=== PATIENT | female | born 1935 | race Caucasian/White ===

== ENCOUNTER 2017-04-13 09:44 | Inpatient (IN) | payer MEDICARE ==
[2017-04-13] MEDS ORDERED: Sodium Chloride 0.9% 1000 ML 1,000 ML IV SCH ×2 (10:00→20:15)
--- NOTE | 2017-04-13 10:13 | ERPHSYRPT ---
- History of Present Illness Time Seen by Provider: 04/13/17 09:46 Source: patient, family (daughter), EMS, halfway records Physician History: CC: headache Hx: 81 y/o patient of Dr Miranda from [facility]. She takes xarelto. This AM she has had unusual headache. Was unable to walk normally and was uncoordinated. She had intermittent episodes of diaphoresis. [place] noted low BP. No chest or abd pain. No N/V. She was sent to ER for evaluation. She is DNR at [facility]. She denies fall or head injury. Timing/Duration: today (fine yesterday) Severity: moderate Allergies/Adverse Reactions: fluoxetine HCl [From Prozac] Allergy (Verified 04/13/17 10:51) Sulfa (Sulfonamide Antibiotics) Allergy (Verified 04/13/17 10:51) Home Medications: Esomeprazole Magnesium [Nexium] 40 mg PO HS 11/11/13 [History] Magnesium 200 mg PO HS 11/11/13 [History] Primidone 50 MG [Mysoline 50Mg] 1 tab PO BID 11/11/13 [History] Rivaroxaban [Xarelto] 10 mg PO DAILY 11/11/13 [History] Bupropion HCl [Wellbutrin Sr] 150 mg PO DAILY 12/25/14 [History] Donepezil HCl 10 mg [Aricept 10 MG] 10 mg PO HS 01/29/15 [History] Furosemide [Lasix] 20 mg PO DAILY 01/29/15 [History] Lisinopril 10 mg [Zestril 10 MG] 20 mg PO DAILY 01/29/15 [History] Tramadol HCl 50 mg [Ultram 50 mg] 50 mg PO BID 01/29/15 [History] Alprazolam 1 mg [Xanax 1 mg] 1 mg PO QID 04/13/17 [History] Hx Tetanus, Diphtheria Vaccination/Date Given: No Hx Influenza Vaccination/Date Given: Yes Hx Pneumococcal Vaccination/Date Given: No - Review of Systems Constitutional: Malaise, No Fever, No Chills Eyes: No Vision Changes Ears, Nose, & Throat: No Symptoms Respiratory: No Cough, No Dyspnea Cardiac: No Chest Pain, No Syncope Abdominal/Gastrointestinal: No Abdominal Pain, No Nausea, No Vomiting Genitourinary Symptoms: No Dysuria Musculoskeletal: No Back Pain, No Neck Pain, No Fall, No Injury Skin: No Rash Neurological: Gait Changes, Headache, No Focal Weakness, No Seizure All Other Systems: Reviewed and Negative - Past Medical History Pertinent Past Medical History: Yes Neurological History: Dementia ENT History: Cataracts Cardiac History: Hypertension Respiratory History: Asthma, Pulmonary Embolism Endocrine Medical History: Diabetes Type II Musculoskeletal History: Arthritis, Fractures GI Medical History: GERD History: Other Psycho-Social History: Anxiety, Depression Female Reproductive Disorders: No Pertinent History - Past Surgical History Past Surgical History: Yes Neuro Surgical History: No Pertinent History Cardiac: No Pertinent History Respiratory: No Pertinent History Gastrointestinal: No Pertinent History Genitourinary: No Pertinent History Musculoskeletal: Orthopedic Surgery Female Surgical History: Hysterectomy Other Surgical History: left PATELLA - Social History Smoking Status: Former smoker Exposure to second hand smoke: No Drug Use: none Patient Lives Alone: No ([facility]) - Female History Hx Now: No - Nursing Vital Signs Nursing Vital Signs: Initial Vital Signs Temperature 99.8 F Temperature Source Rectal Pulse Rate 86 Respiratory Rate 20 Blood Pressure [Right Arm] 94/56 Pain Intensity 0 - Physical Exam General Appearance: alert Eye Exam: PERRL/EOMI Ears, Nose, Throat Exam: normal ENT inspection, moist mucous membranes Neck Exam: normal inspection, non-tender, supple Respiratory Exam: normal breath sounds, lungs clear Cardiovascular Exam: regular rate/rhythm Gastrointestinal/Abdomen Exam: soft, No tenderness, No distention, No guarding Extremity Exam: normal inspection, pedal edema (trace) Neurologic Exam: alert, oriented x 3, cooperative, customer program manager II-XII nml as tested, sensation nml, No motor deficits Skin Exam: warm, dry, No rash - Course Nursing assessment & vital signs reviewed: Yes EKG Interpreted by Me: RATE (81), Sinus Rhythm, NORMAL AXIS, 1st degree AV Block , NORMAL QRS, Non-specific ST Changes (anterior and inferior T wave inversions) , Other (no lold tracing available for comparison) - Radiology Exams cxr X-ray Interpretation: Teleradiologist Report (RLL infiltrate) - CT Exams head CT Interpretation: Tele-radiologist Report, No/Intracranial Hemorrhag Ordered Tests: Active Orders 24 hr Category Date Time Status Accucheck STAT Care 04/13/17 09:46 Active Language And Literature Division Chair STAT Care 04/13/17 09:46 Active Cath for Specimen-Straight STAT Care 04/13/17 09:46 Active EKG-ER Only STAT Care 04/13/17 09:46 Active IV Insertion STAT Care 04/13/17 09:46 Active NPO (ED) STAT Care 04/13/17 09:46 Active Oxygen-ED Only NASAL CANNULA 2 lpm Care 04/13/17 09:46 Active Pulse Oximetry (ED) STAT Care 04/13/17 09:46 Active Rectal Temperature STAT Care 04/13/17 09:48 Active CHEST 1 VIEW (PORTABLE) Stat Exams 04/13/17 09:46 Completed HEAD WITHOUT CONTRAST [CT] Stat Exams 04/13/17 09:47 Completed BLOOD CULTURE Stat Lab 04/13/17 11:10 Received CBC W DIFF Stat Lab 04/13/17 10:14 Completed CMP Stat Lab 04/13/17 10:14 Completed CULTURE,URINE Stat Lab 04/13/17 10:40 Received Lactic Acid Stat Lab 04/13/17 10:10 Results Manual Differential NC Stat Lab 04/13/17 10:14 Completed PROTIME WITH INR Stat Lab 04/13/17 10:14 Completed PTT Stat Lab 04/13/17 10:14 Completed TROPONIN Stat Lab 04/13/17 10:14 Completed UA W/ MICROSCOPIC Stat Lab 04/13/17 10:40 Completed VENOUS BLOOD GAS Urgent Lab 04/13/17 10:10 Completed Medication Summary Generic Name Dose Route Start Last Admin Trade Name Freq PRN Reason Stop Dose Admin Sodium Chloride 1,000 mls @ 100 mls/hr 04/13/17 10:00 04/13/17 10:56 Sodium Chloride 0.9% 1000 Ml IV 05/13/17 09:59 100 mls/hr .Q10H JORDON Administration Azithromycin 500 mg in 250 mls @ 250 mls/hr 04/13/17 11:02 Zithromax 500 Mg/ 250 Ml Nacl Premix IV 04/13/17 12:01 STAT STA Discontinued Medications Generic Name Dose Route Start Last Admin Trade Name Freq PRN Reason Stop Dose Admin Ceftriaxone Sodium/Dextrose 1 g in 50 mls @ 100 mls/hr 04/13/17 10:21 11:01 Rocephin 1 Gm-D5w 50 Ml Bag IV 04/13/17 10:50 100 mls/hr STAT STA Administration Ceftriaxone Sodium/Dextrose Confirm 04/13/17 10:47 Rocephin 1 Gm-D5w 50 Ml Bag Administered 04/13/17 10:48 Dose 1 g in 50 mls @ ud IV .STK-MED ONE Lab/Rad Data: Laboratory Result Diagrams 04/13/17 10:14 04/13/17 10:14 Laboratory Results 04/13/17 04/13/17 04/13/17 Range/Units 10:40 10:14 10:14 WBC (4.0-10.5) K/mm3 RBC (4.1-5.4) M/mm3 Hgb (12.0-16.0) gm/dl Hct (35-47) % MCV (78-100) fl MCH (26-32) pg MCHC (32-36) g/dl RDW (11.5-14.0) % Plt Count (150-450) K/mm3 MPV (6-9.5) fl INR 1.07 (0.8-3.0) APTT 28.5 (25.3-37.0) SECONDS VBG pH (7.32-7.42) VBG pCO2 at Pat Temp (42-55) mm/Hg VBG pO2 at Pat Temp (25-40) mm/Hg VBG HCO3 (22-28) meq/L VBG O2 Sat (Lara) (95-100) VBG Base Excess (-2.0-2.0) VBG Hemoglobin VBG Carboxyhemoglobin (0.0-6.9) % T HGB POC Potassium (3.5-5.1) Sodium (136-145) mEq/L Potassium (3.5-5.1) mEq/L Chloride (98-107) mEq/L Carbon Dioxide (21-32) mEq/L Anion Gap (5-15) MEQ/L BUN (9-20) mg/dL Creatinine (0.55-1.30) mg/dl Estimated GFR ML/MIN Glucose (70-110) MG/DL Lactic Acid (0.4-2.0) Calcium (8.5-10.1) mg/dL Total Bilirubin (0.2-1.0) mg/dL AST (15-37) U/L ALT (12-78) U/L Alkaline Phosphatase (46-116) U/L Troponin I < 0.017 (0.000-0.056) ng/ml Serum Total Protein (6.4-8.2) gm/dL Albumin (3.4-5.0) g/dL Ur Collection Type CATH Urine Color YELLOW (YELLOW) Urine Appearance CLEAR (CLEAR) Urine pH 6.0 (5-6) Ur Specific [place] 1.010 (1.005-1.025) Urine Protein NEGATIVE (Negative) Urine Ketones NEGATIVE (NEGATIVE) Urine Blood 5-10 (0-5) Donny/ul Urine Nitrite NEGATIVE (NEGATIVE) Urine Bilirubin NEGATIVE (NEGATIVE) Urine Urobilinogen NORMAL (0-1) mg/dL Ur Leukocyte Esterase TRACE (NEGATIVE) Urine Microscopic RBC 0-2 (0-2) /HPF Urine Microscopic WBC 2-5 (0-5) /HPF Ur Epithelial Cells RARE (FEW) /HPF Urine Bacteria RARE (NEGATIVE) /HPF Hyaline Casts 2-5 (0-2) /LPF Urine Mucus SLIGHT (NEGATIVE) /HPF Urine Glucose 50 (NEGATIVE) mg/dL Specimen Received 1040 04/13/17 04/13/17 04/13/17 04/13/17 Range/Units 10:14 10:14 10:10 WBC 11.1 H (4.0-10.5) K/mm3 RBC 3.82 L (4.1-5.4) M/mm3 Hgb 11.8 L (12.0-16.0) gm/dl Hct 36.6 (35-47) % MCV 95.8 (78-100) fl MCH 30.8 (26-32) pg MCHC 32.2 (32-36) g/dl RDW 15.2 H (11.5-14.0) % Plt Count 223 (150-450) K/mm3 MPV 10.3 H (6-9.5) fl INR (0.8-3.0) APTT (25.3-37.0) SECONDS VBG pH 7.29 L (7.32-7.42) VBG pCO2 at Pat Temp 60 H (42-55) mm/Hg VBG pO2 at Pat Temp 27 (25-40) mm/Hg VBG HCO3 28.9 H (22-28) meq/L VBG O2 Sat (Lara) 43.1 L (95-100) VBG Base Excess 1.1 (-2.0-2.0) VBG Hemoglobin 12.5 VBG Carboxyhemoglobin 1.2 (0.0-6.9) % T HGB POC Potassium 5.3 H (3.5-5.1) Sodium 131 L (136-145) mEq/L Potassium 5.4 H (3.5-5.1) mEq/L Chloride 96 L (98-107) mEq/L Carbon Dioxide 25.0 (21-32) mEq/L Anion Gap 15.7 H (5-15) MEQ/L BUN 32 H (9-20) mg/dL Creatinine 1.59 H (0.55-1.30) mg/dl Estimated GFR 33 ML/MIN Glucose 164 H (70-110) MG/DL Lactic Acid (0.4-2.0) Calcium 8.8 (8.5-10.1) mg/dL Total Bilirubin 0.30 (0.2-1.0) mg/dL AST 17 (15-37) U/L ALT 11 L (12-78) U/L Alkaline Phosphatase 90 (46-116) U/L Troponin I (0.000-0.056) ng/ml Serum Total Protein 6.8 (6.4-8.2) gm/dL Albumin 3.3 L (3.4-5.0) g/dL Ur Collection Type Urine Color (YELLOW) Urine Appearance (CLEAR) Urine pH (5-6) Ur Specific [place] (1.005-1.025) Urine Protein (Negative) Urine Ketones (NEGATIVE) Urine Blood (0-5) Donny/ul Urine Nitrite (NEGATIVE) Urine Bilirubin (NEGATIVE) Urine Urobilinogen (0-1) mg/dL Ur Leukocyte Esterase (NEGATIVE) Urine Microscopic RBC (0-2) /HPF Urine Microscopic WBC (0-5) /HPF Ur Epithelial Cells (FEW) /HPF Urine Bacteria (NEGATIVE) /HPF Hyaline Casts (0-2) /LPF Urine Mucus (NEGATIVE) /HPF Urine Glucose (NEGATIVE) mg/dL Specimen Received 04/13/17 Range/Units 10:10 WBC (4.0-10.5) K/mm3 RBC (4.1-5.4) M/mm3 Hgb (12.0-16.0) gm/dl Hct (35-47) % MCV (78-100) fl MCH (26-32) pg MCHC (32-36) g/dl RDW (11.5-14.0) % Plt Count (150-450) K/mm3 MPV (6-9.5) fl INR (0.8-3.0) APTT (25.3-37.0) SECONDS VBG pH (7.32-7.42) VBG pCO2 at Pat Temp (42-55) mm/Hg VBG pO2 at Pat Temp (25-40) mm/Hg VBG HCO3 (22-28) meq/L VBG O2 Sat (Lara) (95-100) VBG Base Excess (-2.0-2.0) VBG Hemoglobin VBG Carboxyhemoglobin (0.0-6.9) % T HGB POC Potassium (3.5-5.1) Sodium (136-145) mEq/L Potassium (3.5-5.1) mEq/L Chloride (98-107) mEq/L Carbon Dioxide (21-32) mEq/L Anion Gap (5-15) MEQ/L BUN (9-20) mg/dL Creatinine (0.55-1.30) mg/dl Estimated GFR ML/MIN Glucose (70-110) MG/DL Lactic Acid 3.5 H (0.4-2.0) Calcium (8.5-10.1) mg/dL Total Bilirubin (0.2-1.0) mg/dL AST (15-37) U/L ALT (12-78) U/L Alkaline Phosphatase (46-116) U/L Troponin I (0.000-0.056) ng/ml Serum Total Protein (6.4-8.2) gm/dL Albumin (3.4-5.0) g/dL Ur Collection Type Urine Color (YELLOW) Urine Appearance (CLEAR) Urine pH (5-6) Ur Specific [place] (1.005-1.025) Urine Protein (Negative) Urine Ketones (NEGATIVE) Urine Blood (0-5) Donny/ul Urine Nitrite (NEGATIVE) Urine Bilirubin (NEGATIVE) Urine Urobilinogen (0-1) mg/dL Ur Leukocyte Esterase (NEGATIVE) Urine Microscopic RBC (0-2) /HPF Urine Microscopic WBC (0-5) /HPF Ur Epithelial Cells (FEW) /HPF Urine Bacteria (NEGATIVE) /HPF Hyaline Casts (0-2) /LPF Urine Mucus (NEGATIVE) /HPF Urine Glucose (NEGATIVE) mg/dL Specimen Received - Progress Progress Note: 04/13/17 11:47 She appears stable. BP borderline low. IVF given. Cultures sent. Abtx started to cover pneumonia. pH lower than expected and lactic up some. Called Dr Sarkar for Dr Miranda. Will admit to Tele. Daughter here and at bedside. [facility] paperwork completed. Discussed with Dr.: Mello Will see patient in: hospital (full admit) Counseled pt/family regarding: lab results, diagnosis, need for follow-up, rad results - Departure Time of Disposition: 11:48 Departure Disposition: In-patient Admission (Tele) Clinical Impression: RLL pneumonia, Sepsis Condition: Fair Critical Care Time: No Referrals: DELTA MIRANDA MD [Primary Care Provider] -
[2017-04-13 10:17] LABS: Lactic Acid 3.5 (0.4-2.0)
[2017-04-13 10:20] LABS: VBG BASE EXCESS 1.1 (-2.0-2.0); VBG CARBOXYHEMOGLOBIN 1.2 % T HGB (0.0-6.9); VBG HCO3- 28.9 meq/L (22-28); VBG HEMOGLOBIN 12.5; VBG O2 SATURATION 43.1 (95-100); VBG POTASSIUM 5.3 (3.5-5.1); VBG pH 7.29 (7.32-7.42)
[2017-04-13] MEDS ORDERED: ROCEPHIN 1 Gm-D5w 50 ml Bag** 1 G/50 ML IVPB IV STA (10:21)
[2017-04-13 10:24] LABS: Mean Cell Volume 95.8 fl (78-100); Mean Platelet Volume 10.3 fl (6-9.5); Platelet Count 223 K/mm3 (150-450); Red Blood Count 3.82 M/mm3 (4.1-5.4); Red Cell Distribution Width 15.2 % (11.5-14.0); White Blood Count 11.1 K/mm3 (4.0-10.5)
[2017-04-13 10:25] LABS: Mean Corpuscular Hemoglobin 30.8 pg (26-32)
[2017-04-13 10:40] LABS: INR 1.07 (0.8-3.0); PROTIME 12.1 SECONDS (9.95-12.35)
[2017-04-13 10:43] LABS: PTT 28.5 SECONDS (25.3-37.0)
[2017-04-13 10:46] LABS: ALBUMIN 3.3 g/dL (3.4-5.0); ANION GAP 15.7 MEQ/L (5-15); BILIRUBIN,TOTAL 0.3 mg/dL (0.2-1.0); Potassium 5.4 mEq/L (3.5-5.1); Total Protein 6.8 gm/dL (6.4-8.2)
[2017-04-13 10:46] LABS: Collection Type CATH
[2017-04-13 10:47] LABS: Bilirubin NEGATIVE (NEGATIVE); Glucose 50 mg/dL (NEGATIVE); Leukocyte Esterase TRACE (NEGATIVE)
[2017-04-13] MEDS ORDERED: ROCEPHIN 1 Gm-D5w 50 ml Bag** 1 G/50 ML IVPB IV ONE (10:47)
[2017-04-13 10:48] LABS: COMPLETE URINE MICROSCOPIC? YES
--- NOTE | 2017-04-13 11:01 | XRAY ---
Indication: Weakness. Comparison: July 07, 2016P Portable chest again hyperinflated with again right base infiltrate/atelectasis larger than before with now small effusion. Remaining lungs clear. Heart within normal limits for AP portable technique.
--- NOTE | 2017-04-13 11:01 | XRAY ---
Indication: Weakness. Gait imbalance. Multiple contiguous axial images obtained through the head without contrast. Comparison: January 29, 2015. Again no acute intracranial hemorrhage, abnormal extraaxial fluid collection, or mass effect. Fourth ventricle is midline. Stable age appropriate global atrophy, minimal periventricular degenerative microischemia, and remote lacunar infarct of the left caudate head. Osseous structures intact. Visualized paranasal sinuses are clear. There is now partial opacification of the inferior left mastoid air cells. Impression: Stable nonacute senile brain with again remote left caudate lacunar infarct. Partial opacification of the left mastoid air cells presumed inflammatory. CT DI 69.11
[2017-04-13] MEDS ORDERED: Zithromax 500 MG/ 250 ML NaCl Premix 500 MG/250 ML IVPB IV STA (11:02)
[2017-04-13 11:10] LABS: Bacteria RARE /HPF (NEGATIVE); Epithelial Cells RARE /HPF (FEW); Mucus SLIGHT /HPF (NEGATIVE)
[2017-04-13 11:11] LABS: ADD URINE CULTURE? YES (NO)
[2017-04-13] MEDS ORDERED: Zithromax 500 MG/ 250 ML NaCl Premix 500 MG/250 ML IVPB IV ONE (11:45)
[2017-04-13 11:55] LABS: BAND 6 % (0.0-2.0); Total Cells Counted 100
[2017-04-13 11:56] LABS: Platelet Estimate NORMAL (NORMAL); Toxic Granulation 1+
[2017-04-13] MEDS ORDERED: TYLENOL 325 MG PO PRN (12:32)
[2017-04-13] MEDS ORDERED: Tessalon Perles 100 MG PO SCH (16:00)
[2017-04-13] MEDS ORDERED: GLYCERIN OP SCH (16:00)
[2017-04-13] MEDS ORDERED: CARBOXYMETHYLCELLULOS OP SCH (16:00)
[2017-04-13] MEDS ORDERED: XARELTO 10 MG TABLET PO SCH (16:15)
[2017-04-13] MEDS ORDERED: MEDICATION INTERVENTION MC PRN (16:28)
[2017-04-13] MEDS: XANAX 1 MG PO SCH ×2 (17:00→22:30)
[2017-04-13] MEDS: Neurontin 100 MG PO SCH ×2 (17:00→22:29)
[2017-04-13] MEDS: Artificial Tears 15 ML OP SCH ×4 (17:01→23:43)
[2017-04-13] MEDS: Advair Hfa 115/21 Common canister IH SCH (19:17)
[2017-04-13] MEDS ORDERED: Requip 0.5 MG ONE (19:41)
[2017-04-13] MEDS ORDERED: MORPHINE SULFATE 2 MG INJ IV PRN (20:01)
[2017-04-13] MEDS: Requip 0.5 MG PO SCH (20:01)
[2017-04-13] MEDS ORDERED: PETROLATUM WHITE OP SCH (22:00)
[2017-04-13] MEDS ORDERED: Levofloxacin 500MG/100ML D5W 500 MG/100 ML BAG IV SCH (22:00)
[2017-04-13] MEDS ORDERED: MAGNESIUM 200 MG PO SCH (22:00)
[2017-04-13] MEDS ORDERED: DEXTRAN OP SCH (22:00)
[2017-04-13] MEDS ORDERED: NON-FORMULARY ITEM (Esomeprazole Magnesium [Nexium] 40 MG) PO SCH (22:00)
[2017-04-13] MEDS ORDERED: MINERAL OIL OP SCH (22:00)
[2017-04-13] MEDS ORDERED: HYPROMELLOSE OP SCH (22:00)
[2017-04-13] MEDS: Lubrifresh P.M. 3.5 gm Ointment OP SCH (22:27)
[2017-04-13] MEDS: MAG-OX 400 PO SCH (22:28)
[2017-04-13] MEDS: MYSOLINE 50MG PO SCH (22:29)
[2017-04-13] MEDS: Protonix 40MG Tablet PO SCH (22:29)
[2017-04-13] MEDS: ULTRAM 50 MG PO SCH (22:32)
[2017-04-13] MEDS: SENOKOT 8.6 MG PO PRN (22:36)
[2017-04-13] MEDS: Sodium Chloride 0.9% 1000 ML 1,000 ML IV SCH (22:37)
[2017-04-14] MEDS: Tessalon Perles 100 MG PO PRN ×2 (02:17→22:40)
[2017-04-14] MEDS: Artificial Tears 15 ML OP SCH ×11 (04:34→22:01)
[2017-04-14 05:09] LABS: Lactic Acid 0.5 (0.4-2.0); VBG BASE EXCESS 1.2 (-2.0-2.0); VBG CARBOXYHEMOGLOBIN 2.7 % T HGB (0.0-6.9); VBG HEMOGLOBIN 9.5; VBG POTASSIUM 4.5 (3.5-5.1); VBG pH 7.41 (7.32-7.42)
[2017-04-14 05:21] LABS: BASOPHIL % 0.2 % (0.0-0.4); Eosinophil % 1.1 % (0.00-5.0); Granulocytes % 81.1 % (36.0-66.0); Lymphocytes % 9.9 % (24.0-44.0); Mean Platelet Volume 10.4 fl (6-9.5); Monocytes % 7.7 % (0.0-12.0); Platelet Count 156 K/mm3 (150-450); Red Blood Count 2.97 M/mm3 (4.1-5.4); Red Cell Distribution Width 15.1 % (11.5-14.0); White Blood Count 6.1 K/mm3 (4.0-10.5)
[2017-04-14 05:33] LABS: Mean Corpuscular Hemoglobin 30.9 pg (26-32)
[2017-04-14] MEDS: Advair Hfa 115/21 Common canister IH SCH ×2 (06:40→19:09)
[2017-04-14] MEDS: DUONEB 0.5-3 MG/3 ml Neb IH PRN (06:47)
[2017-04-14] MEDS: Sodium Chloride 0.9% 1000 ML 1,000 ML IV SCH ×2 (08:16→22:12)
--- NOTE | 2017-04-14 09:12 | PCM.HP ---
History of Present Illness - Chief Complaint Chief Complaint: rll pneumonia History of Present Illness: is a 81 year old female who [facility], she was weak and confused. She has chronic respiratory failure and is on oxygen, per daughter she was found without her oxygen on yesterday morning. She has had frequent nosebleeds, complained of headache yesterday. she takes xarelto, chest xray shows pneumonia. - Review of Systems Constitutional: No Fever, No Chills Respiratory: Cough, Short Of Breath Cardiac: No Chest Pain, No Edema, No Syncope Abdominal/Gastrointestinal: No Abdominal Pain, No Nausea, No Vomiting, No Diarrhea Skin: No Rash All Other Systems: Reviewed and Negative Medications & Allergies Home Medications: Home Medication List Esomeprazole Magnesium [Nexium] 40 mg PO HS 11/11/13 [History Confirmed 04/13/17 ] Magnesium 200 mg PO HS 11/11/13 [History Confirmed 04/13/17] Primidone 50 MG [Mysoline 50Mg] 1 tab PO BID 11/11/13 [History Confirmed ] Rivaroxaban [Xarelto] 10 mg PO DAILY 11/11/13 [History Confirmed 04/13/17] Bupropion HCl [Wellbutrin Sr] 150 mg PO DAILY 12/25/14 [History Confirmed ] Donepezil HCl 10 mg [Aricept 10 MG] 10 mg PO HS 01/29/15 [History Confirmed 04/13/17] Lisinopril 10 mg [Zestril 10 MG] 20 mg PO DAILY 01/29/15 [History Confirmed 04/13/17] Tramadol HCl 50 mg [Ultram 50 mg] 50 mg PO BID 01/29/15 [History Confirmed 04/13/17] Alprazolam 1 mg [Xanax 1 mg] 1 mg PO QID 04/13/17 [History Confirmed 04/13] Benzonatate [Tessalon Perle] 200 mg PO TID 04/13/17 [History Confirmed 04/13/17] Carboxymethylcellulos/Glycerin [Refresh Optive Eye Drops] 2 drp OP Q2H 04/13/17 [History Confirmed 04/13/17] Dextran 70/Hypromellose [Artificial Tears Eye Drops] 1 drp OP HS 04/13/17 [ History Confirmed 04/13/17] Fluticasone Propionate [Flonase NASAL] 16 gm NS DAILY 04/13/17 [History Confirmed 04/13/17] Fluticasone/Vilanterol [Breo Ellipta 100-25 Mcg INH] 1 each IH DAILY 04/13/17 [ History Confirmed 04/13/17] Gabapentin [Neurontin] 100 mg PO TID 04/13/17 [History Confirmed 04/13/17] Loratadine 10 mg [Claritin 10 mg] 1 tab PO DAILY 04/13/17 [History Confirmed 04/13/17] Mineral Oil/Petrolatum,White [Refresh P.m. Ointment] 3.5 gm OP HS 04/13/17 [ History Confirmed 04/13/17] Olopatadine HCl [Pataday] 2.5 ml OP DAILY 04/13/17 [History Confirmed 04/13/17] Omeprazole 20 MG [Prilosec 20 mg] 20 mg PO BID 04/13/17 [History Confirmed 04/13] Ropinirole HCl 0.5 mg [Requip 0.5 MG] 1 mg PO HS 04/13/17 [History Confirmed 04/13/17] Sennosides [Senna Laxative] 8.6 mg PO BID 04/13/17 [History Confirmed 04/13/17] Allergies/Adverse Reactions: Allergies Allergy/AdvReac Type Severity Reaction Status Date / Time fluoxetine HCl [From Prozac] Allergy Verified 04/13/17 10:51 Sulfa (Sulfonamide Allergy Verified 04/13/17 10:51 Antibiotics) - Past Medical History Past Medical History: Yes Neurological History: Dementia ENT History: Cataracts Cardiac History: Hypertension Respiratory History: Asthma, Pulmonary Embolism Endocrine Medical History: Diabetes Type II Musculoskelatal History: Arthritis, Fractures GI Medical History: GERD History: Other Pyscho-Social History: Anxiety, Depression Reproductive Disorders: No Pertinent History - Female History Are you now?: No - Past Surgical History Past Surgical History: Yes Neuro Surgical History: No Pertinent History Cardiac History: No Pertinent History Respiratory Surgery: No Pertinent History GI Surgical History: No Pertinent History Genitourinary Surgical Hx: No Pertinent History Musculskeletal Surgical Hx: Orthopedic Surgery Female Surgical History: Hysterectomy Other Surgical History: left PATELLA - Social History Smoking Status: Former smoker Exposure to second hand smoke: No Alcohol: None Drug Use: none - Physical Exam Vital Signs: Vital Signs - 24 hr Temp Pulse Resp BP Pulse Ox 04/14/17 07:04 97.6 F 79 18 133/59 93 L 04/14/17 06:43 77 18 93 L 04/14/17 04:05 98.5 F 77 20 125/56 96 04/13/17 23:34 98.4 F 85 20 132/59 94 L 04/13/17 20:00 98.7 F 88 22 133/56 94 L 04/13/17 19:27 88 22 94 L 04/13/17 18:00 98.1 F 87 18 123/53 93 L 04/13/17 16:00 98.1 F 76 18 108/50 93 L 04/13/17 14:17 87 18 95 04/13/17 12:33 98.9 F 81 18 116/51 95 04/13/17 12:11 78 18 105/43 92 L 04/13/17 10:38 20 94/56 98 04/13/17 10:30 99.8 F 98 04/13/17 09:45 99.8 F 86 18 93/55 98 Oxygen-Last 24 hours O2 Percentage 3 Liters = 32% O2 Percentage 3 Liters = 32% O2 Percentage 3 Liters = 32% O2 Percentage 3 Liters = 32% O2 Percentage 2 Liters = 28% O2 Percentage 2 Liters = 28% O2 Percentage 3 Liters = 32% O2 Percentage 3 Liters = 32% O2 Percentage 3 Liters = 32% O2 Percentage 3 Liters = 32% O2 Percentage 3 Liters = 32% General Appearance: no apparent distress, alert Eye Exam: PERRL/EOMI, eyes nml inspection Respiratory Exam: crackles/rales (right lower lung) Cardiovascular Exam: regular rate/rhythm, normal heart sounds, normal peripheral pulses Gastrointestinal/Abdomen Exam: soft, normal bowel sounds, No tenderness, No mass Extremity Exam: normal inspection, normal range of motion, pelvis stable Results - Labs Lab/Micro Results: Accuchecks Date 04/13/17 Accucheck Value: 99 Accucheck Value: 107 Accucheck Value: 108 Lab Results-Last 24 Hours 04/13/17 04/13/17 04/14/17 Range/Units 13:00 13:10 05:00 WBC 6.1 (4.0-10.5) K/mm3 RBC 2.97 L (4.1-5.4) M/mm3 Hgb 9.2 L (12.0-16.0) gm/dl Hct 28.8 L (35-47) % MCV 97.0 (78-100) fl MCH 30.9 (26-32) pg MCHC 31.9 L (32-36) g/dl RDW 15.1 H (11.5-14.0) % Plt Count 156 (150-450) K/mm3 MPV 10.4 H (6-9.5) fl Gran % 81.1 H (36.0-66.0) % Lymphocytes % 9.9 L (24.0-44.0) % Monocytes % 7.7 (0.0-12.0) % Eosinophils % 1.1 (0.00-5.0) % Basophils % 0.2 (0.0-0.4) % Basophils # 0.01 (0-0.4) VBG pH (7.32-7.42) VBG pCO2 at Pat Temp (42-55) mm/Hg VBG pO2 at Pat Temp (25-40) mm/Hg VBG HCO3 (22-28) meq/L VBG O2 Sat (Lara) (95-100) VBG Base Excess (-2.0-2.0) VBG Hemoglobin VBG Carboxyhemoglobin (0.0-6.9) % T HGB POC Potassium (3.5-5.1) Hemoglobin A1c 5.4 (4.5-6.2) Lactic Acid 2.1 H (0.4-2.0) 04/14/17 Range/Units 05:03 WBC (4.0-10.5) K/mm3 RBC (4.1-5.4) M/mm3 Hgb (12.0-16.0) gm/dl Hct (35-47) % MCV (78-100) fl MCH (26-32) pg MCHC (32-36) g/dl RDW (11.5-14.0) % Plt Count (150-450) K/mm3 MPV (6-9.5) fl Gran % (36.0-66.0) % Lymphocytes % (24.0-44.0) % Monocytes % (0.0-12.0) % Eosinophils % (0.00-5.0) % Basophils % (0.0-0.4) % Basophils # (0-0.4) VBG pH 7.41 (7.32-7.42) VBG pCO2 at Pat Temp 41 L (42-55) mm/Hg VBG pO2 at Pat Temp 98 H (25-40) mm/Hg VBG HCO3 26.0 (22-28) meq/L VBG O2 Sat (Lara) 98.0 (95-100) VBG Base Excess 1.2 (-2.0-2.0) VBG Hemoglobin 9.5 VBG Carboxyhemoglobin 2.7 (0.0-6.9) % T HGB POC Potassium 4.5 (3.5-5.1) Hemoglobin A1c (4.5-6.2) Lactic Acid 0.5 (0.4-2.0) Accuchecks Date 04/13/17 Accucheck Value: 99 Accucheck Value: 107 Accucheck Value: 108 - Other Procedures and Tests Respiratory Therapy 04/13/17 14:17 Respiratory Nebulizer UD 04/13/17 19:00 Respiratory MDI BID 04/13/17 19:27 Flutter Therapy 04/13/17 21:56 Sputum Specimen Obtain .as ordered Assessment/Plan (1) RLL pneumonia Current Visit: Yes Status: Acute Assessment & Plan: continue rocephin and zithromax, observe Code(s): J18.1 - LOBAR PNEUMONIA, UNSPECIFIED ORGANISM (2) Altered mental status Current Visit: No Status: Acute Code(s): R41.82 - ALTERED MENTAL STATUS, UNSPECIFIED (3) Anticoagulant adverse reaction Current Visit: No Status: Acute Assessment & Plan: will hold xarelto at this time (4) Epistaxis Current Visit: Yes Status: Acute Assessment & Plan: stable at this time, will hold xarelto and observe Code(s): R04.0 - EPISTAXIS
[2017-04-14] MEDS: Flonase NASAL NS SCH (09:29)
[2017-04-14] MEDS: MYSOLINE 50MG PO SCH ×2 (09:31→22:17)
[2017-04-14] MEDS: XANAX 1 MG PO SCH ×4 (09:31→22:18)
[2017-04-14] MEDS: Wellbutrin SR 150 MG PO SCH (09:31)
[2017-04-14] MEDS: CLARITIN 10 MG PO SCH (09:31)
[2017-04-14] MEDS: ROCEPHIN 1 Gm-D5w 50 ml Bag** 1 G/50 ML IVPB IV SCH (09:31)
[2017-04-14] MEDS: ULTRAM 50 MG PO SCH ×2 (09:31→22:16)
[2017-04-14] MEDS: Neurontin 100 MG PO SCH ×3 (09:31→22:16)
[2017-04-14] MEDS ORDERED: OLOPATADINE HCL OP SCH (10:00)
[2017-04-14] MEDS ORDERED: NON-FORMULARY ITEM (Fluticasone/Vilanterol [Breo Ellipta 100-25 Mcg Inh] 1 EACH) IH SCH (10:00)
[2017-04-14] MEDS: Zithromax 500 MG/ 250 ML NaCl Premix 500 MG/250 ML IVPB IV SCH (10:27)
[2017-04-14] MEDS: Lubrifresh P.M. 3.5 gm Ointment OP SCH (22:05)
[2017-04-14] MEDS: Requip 0.5 MG PO SCH (22:15)
[2017-04-14] MEDS: MAG-OX 400 PO SCH (22:17)
[2017-04-14] MEDS: Protonix 40MG Tablet PO SCH (22:18)
[2017-04-14] MEDS: SENOKOT 8.6 MG PO PRN (22:39)
[2017-04-15] MEDS: Artificial Tears 15 ML OP SCH ×7 (00:07→18:44)
[2017-04-15 05:28] LABS: Mean Platelet Volume 10.3 fl (6-9.5); Platelet Count 172 K/mm3 (150-450); Red Blood Count 3.03 M/mm3 (4.1-5.4); Red Cell Distribution Width 15.2 % (11.5-14.0); White Blood Count 5.3 K/mm3 (4.0-10.5)
[2017-04-15 05:50] LABS: ALBUMIN 2.6 g/dL (3.4-5.0); ALKALINE PHOSPHATASE 68 U/L (46-116); ANION GAP 10.2 MEQ/L (5-15); BLOOD UREA NITROGEN 18 mg/dL (9-20); CHLORIDE 103 mEq/L (98-107); Carbon Dioxide 26.4 mEq/L (21-32); Glucose 129 MG/DL (70-110); Potassium 4.3 mEq/L (3.5-5.1); SGOT/AST 14 U/L (15-37); SGPT/ALT 9 U/L (12-78); SODIUM 135 mEq/L (136-145); Total Protein 5.8 gm/dL (6.4-8.2)
[2017-04-15 06:34] LABS: Eosinophil 1 % (0.00-3.0); Total Cells Counted 100
[2017-04-15 06:35] LABS: ANISOCYTOSIS 1+; Platelet Estimate NORMAL (NORMAL); Poikilocytosis 1+
[2017-04-15] MEDS: Advair Hfa 115/21 Common canister IH SCH ×2 (07:20→18:40)
[2017-04-15] MEDS: DUONEB 0.5-3 MG/3 ml Neb IH PRN ×2 (07:20→14:45)
[2017-04-15] MEDS: Sodium Chloride 0.9% 1000 ML 1,000 ML IV SCH (08:12)
--- NOTE | 2017-04-15 08:14 | PCM.NOTE ---
Date and Time: 04/15/17812 Subjective Assessment: doing ok, had an episode of dyspnea earlier this morning. improved with neb tx. still has cough. Objective Exam General Appearance: no apparent distress, alert Respiratory Exam: crackles/rales, wheezing Cardiovascular Exam: regular rate/rhythm, normal heart sounds Gastrointestinal/Abdomen Exam: soft, No tenderness, No mass Extremity Exam: normal inspection, normal range of motion OBJECTIVE DATA Vital Signs: Vital Signs - 24 hr Temp Pulse Resp BP Pulse Ox 04/15/17 08:06 98 F 90 19 150/63 93 L 04/15/17 07:23 99 H 22 92 L 04/15/17 05:00 19 04/15/17 04:00 98.5 F 98 H 19 138/63 91 L 04/15/17 01:00 24 04/14/17 23:32 98.7 F 110 H 24 153/62 90 L 04/14/17 21:00 22 04/14/17 20:00 98.7 F 95 H 22 137/63 91 L 04/14/17 19:09 96 H 22 92 L 04/14/17 16:37 98 F 82 20 146/71 96 04/14/17 12:18 97.8 F 82 20 136/70 97 Oxygen-Last 24 hours O2 Percentage 3 Liters = 32% O2 Percentage 3 Liters = 32% O2 Percentage 3 Liters = 32% O2 Percentage 3 Liters = 32% O2 Percentage 3 Liters = 32% O2 Percentage 2 Liters = 28% O2 Percentage 3 Liters = 32% Pain Assessment - Last Documented Pain Intensity 8 Pain Scale Used 0-10 Pain Scale Intake and Output: Intake & Output 04/12/17 04/13/17 04/14/17 04/15/17 11:59 11:59 11:59 11:59 Intake Total 2302 2932 Output Total 800 2100 Balance 1502 832 Weight 69.581 kg Lab Results: Accuchecks Date 04/14/17 Time 22:00 Accucheck Value: 121 Accucheck Value: 78 Accucheck Value: 103 Lab Results-Last 24 Hours 04/15/17 04/15/17 Range/Units 05:10 05:10 WBC 5.3 (4.0-10.5) K/mm3 RBC 3.03 L (4.1-5.4) M/mm3 Hgb 9.4 L (12.0-16.0) gm/dl Hct 29.7 L (35-47) % MCV 98.0 (78-100) fl MCH 31.0 (26-32) pg MCHC 31.6 L (32-36) g/dl RDW 15.2 H (11.5-14.0) % Plt Count 172 (150-450) K/mm3 MPV 10.3 H (6-9.5) fl Segmented Neutrophils 83 H (36.0-66.0) % Lymphocytes (Manual) 15 L (24-44) % Monocytes (Manual) 1 (0.0-12.0) % Eosinophils (Manual) 1 (0.00-3.0) % Differential Comment ABNORMAL Platelet Estimate NORMAL (NORMAL) Poikilocytosis 1+ Anisocytosis 1+ Sodium 135 L (136-145) mEq/L Potassium 4.3 (3.5-5.1) mEq/L Chloride 103 (98-107) mEq/L Carbon Dioxide 26.4 (21-32) mEq/L Anion Gap 10.2 (5-15) MEQ/L BUN 18 (9-20) mg/dL Creatinine 0.92 (0.55-1.30) mg/dl Estimated GFR > 60 ML/MIN Glucose 129 H (70-110) MG/DL Calcium 8.1 L (8.5-10.1) mg/dL Total Bilirubin 0.30 (0.2-1.0) mg/dL AST 14 L (15-37) U/L ALT 9 L (12-78) U/L Alkaline Phosphatase 68 (46-116) U/L Serum Total Protein 5.8 L (6.4-8.2) gm/dL Albumin 2.6 L (3.4-5.0) g/dL Assessment/Plan (1) RLL pneumonia Current Visit: Yes Status: Acute Assessment & Plan: continue current management Code(s): J18.1 - LOBAR PNEUMONIA, UNSPECIFIED ORGANISM (2) Altered mental status Current Visit: Yes Status: Acute Code(s): R41.82 - ALTERED MENTAL STATUS, UNSPECIFIED (3) Epistaxis Current Visit: Yes Status: Acute Assessment & Plan: resolved at this time, jordon is on hold Code(s): R04.0 - EPISTAXIS (4) COPD exacerbation Current Visit: Yes Status: Acute Assessment & Plan: add IV solu medrol 40mg IV q6hrs Code(s): J44.1 - CHRONIC OBSTRUCTIVE PULMONARY DISEASE W (ACUTE) EXACERBATION
[2017-04-15] MEDS: solu-MEDROL 40 MG IV SCH ×2 (09:35→13:21)
[2017-04-15] MEDS: MYSOLINE 50MG PO SCH ×2 (09:35→21:06)
[2017-04-15] MEDS: XANAX 1 MG PO SCH ×4 (09:37→21:07)
[2017-04-15] MEDS: Wellbutrin SR 150 MG PO SCH (09:37)
[2017-04-15] MEDS: ULTRAM 50 MG PO SCH ×2 (09:37→21:07)
[2017-04-15] MEDS: CLARITIN 10 MG PO SCH (09:37)
[2017-04-15] MEDS: Neurontin 100 MG PO SCH ×3 (09:38→21:06)
[2017-04-15] MEDS: Flonase NASAL NS SCH (09:38)
[2017-04-15] MEDS: ROCEPHIN 1 Gm-D5w 50 ml Bag** 1 G/50 ML IVPB IV SCH (09:39)
[2017-04-15] MEDS: Zithromax 500 MG/ 250 ML NaCl Premix 500 MG/250 ML IVPB IV SCH (09:39)
[2017-04-15] MEDS: Tessalon Perles 100 MG PO PRN ×2 (09:46→21:09)
[2017-04-15] MEDS ORDERED: Lasix 20 MG/2 ML ONE (15:40)
[2017-04-15] MEDS: solu-MEDROL 125 MG IV SCH (17:40)
[2017-04-15] MEDS: DUONEB 0.5-3 MG/3 ml Neb IH SCH ×2 (18:40→23:27)
[2017-04-15] MEDS ORDERED: DUONEB 0.5-3 MG/3 ml Neb IH SCH (19:00)
[2017-04-15] MEDS: Requip 0.5 MG PO SCH (21:05)
[2017-04-15] MEDS: Protonix 40MG Tablet PO SCH (21:07)
[2017-04-15] MEDS: MAG-OX 400 PO SCH (21:08)
[2017-04-15] MEDS: Lubrifresh P.M. 3.5 gm Ointment OP SCH (21:11)
[2017-04-15] MEDS: NovoLOG Insulin SQ PRN (21:31)
[2017-04-16] MEDS: solu-MEDROL 125 MG IV SCH ×2 (00:45→06:17)
[2017-04-16] MEDS: DUONEB 0.5-3 MG/3 ml Neb IH SCH ×6 (03:48→23:34)
[2017-04-16 05:24] LABS: Mean Cell Volume 95.2 fl (78-100); Mean Platelet Volume 10.3 fl (6-9.5); Platelet Count 179 K/mm3 (150-450); Red Blood Count 3.35 M/mm3 (4.1-5.4); Red Cell Distribution Width 14.9 % (11.5-14.0); White Blood Count 3.4 K/mm3 (4.0-10.5)
[2017-04-16 05:37] LABS: ALKALINE PHOSPHATASE 84 U/L (46-116); ANION GAP 12.9 MEQ/L (5-15); BLOOD UREA NITROGEN 20 mg/dL (9-20); CHLORIDE 98 mEq/L (98-107); Carbon Dioxide 27.5 mEq/L (21-32); Glucose 225 MG/DL (70-110); SGOT/AST 17 U/L (15-37); SGPT/ALT 15 U/L (12-78); SODIUM 134 mEq/L (136-145); Total Protein 6.8 gm/dL (6.4-8.2)
[2017-04-16] MEDS: Advair Hfa 115/21 Common canister IH SCH ×2 (06:54→19:38)
[2017-04-16] MEDS: NovoLOG Insulin SQ PRN ×3 (08:10→21:56)
--- NOTE | 2017-04-16 08:14 | PCM.NOTE ---
Date and Time: 04/16/17 08 Subjective Assessment: patient is doing ok, still requiring 5L oxygen. no new problems or concerns Objective Exam General Appearance: no apparent distress, alert Respiratory Exam: prolonged expirations, wheezing Cardiovascular Exam: regular rate/rhythm, normal heart sounds Gastrointestinal/Abdomen Exam: soft, No tenderness, No mass OBJECTIVE DATA Vital Signs: Vital Signs - 24 hr Temp Pulse Resp BP Pulse Ox 04/16/17 06:57 84 18 93 L 04/16/17 04:44 18 04/16/17 03:49 84 18 90 L 04/16/17 03:44 97.6 F 98 H 18 144/66 92 L 04/16/17 01:00 18 04/16/17 00:00 98.3 F 99 H 18 148/69 92 L 04/15/17 23:27 100 H 20 91 L 04/15/17 21:00 18 04/15/17 19:46 97.5 F 99 H 18 150/68 94 L 04/15/17 18:41 93 H 20 90 L 04/15/17 16:00 97.6 F 102 H 20 180/81 89 L 04/15/17 14:55 102 H 20 85 L 04/15/17 12:00 98.2 F 97 H 21 167/72 90 L Oxygen-Last 24 hours O2 Percentage 5 Liters = 40% O2 Percentage 5 Liters = 40% O2 Percentage 5 Liters = 40% O2 Percentage 5 Liters = 40% O2 Percentage 3 Liters = 32% Pain Assessment - Last Documented Pain Intensity 8 Pain Scale Used 0-10 Pain Scale Intake and Output: Intake & Output 04/13/17 04/14/17 04/15/17 04/16/17 11:59 11:59 11:59 11:59 Intake Total 2302 3372 220 Output Total 800 2100 1500 Balance 1502 1272 -1280 Weight 69.581 kg Lab Results: Accuchecks Date 04/15/17 Time 21:42 Accucheck Value: 235 Accucheck Value: 179 Accucheck Value: 159 Lab Results-Last 24 Hours 04/16/17 04/16/17 Range/Units 05:15 05:15 WBC 3.4 L (4.0-10.5) K/mm3 RBC 3.35 L (4.1-5.4) M/mm3 Hgb 10.4 L (12.0-16.0) gm/dl Hct 31.9 L (35-47) % MCV 95.2 (78-100) fl MCH 31.0 (26-32) pg MCHC 32.6 (32-36) g/dl RDW 14.9 H (11.5-14.0) % Plt Count 179 (150-450) K/mm3 MPV 10.3 H (6-9.5) fl Sodium 134 L (136-145) mEq/L Potassium 4.0 (3.5-5.1) mEq/L Chloride 98 (98-107) mEq/L Carbon Dioxide 27.5 (21-32) mEq/L Anion Gap 12.9 (5-15) MEQ/L BUN 20 (9-20) mg/dL Creatinine 0.87 (0.55-1.30) mg/dl Estimated GFR > 60 ML/MIN Glucose 225 H (70-110) MG/DL Calcium 8.8 (8.5-10.1) mg/dL Total Bilirubin 0.30 (0.2-1.0) mg/dL AST 17 (15-37) U/L ALT 15 (12-78) U/L Alkaline Phosphatase 84 (46-116) U/L Serum Total Protein 6.8 (6.4-8.2) gm/dL Albumin 3.0 L (3.4-5.0) g/dL Multi-Disciplinary Progress Notes: Multi-Disciplinary Progress Notes 04/15/17 13:40 Nutrition Note by Lissett Fontaine F/u Note: Note 1800 ada diet con't with 75-100% po intake x most meals: ave 70%. glu 129. Pt refused diet ed. goal #1) glu to decrease: mtg, ongoing #2) maintain po intake >=50%: mtg, ongoing. Will monitor and f/u prn. L.CORY Fontaine Initialized on 04/15/17 13:40 - END OF NOTE Assessment/Plan (1) RLL pneumonia Current Visit: Yes Status: Acute Assessment & Plan: continue IV abx, nebs Code(s): J18.1 - LOBAR PNEUMONIA, UNSPECIFIED ORGANISM (2) Altered mental status Current Visit: Yes Status: Acute Code(s): R41.82 - ALTERED MENTAL STATUS, UNSPECIFIED (3) Epistaxis Current Visit: Yes Status: Acute Code(s): R04.0 - EPISTAXIS (4) COPD exacerbation Current Visit: Yes Status: Acute Assessment & Plan: decrease solu medrol to 40mg IV q6hrs Code(s): J44.1 - CHRONIC OBSTRUCTIVE PULMONARY DISEASE W (ACUTE) EXACERBATION
[2017-04-16] MEDS: XANAX 1 MG PO SCH ×4 (08:46→21:57)
[2017-04-16] MEDS: ULTRAM 50 MG PO SCH ×2 (08:46→21:58)
[2017-04-16] MEDS: CLARITIN 10 MG PO SCH (08:46)
[2017-04-16] MEDS: Tessalon Perles 100 MG PO PRN ×3 (08:46→21:57)
[2017-04-16] MEDS: Wellbutrin SR 150 MG PO SCH (08:47)
[2017-04-16] MEDS: ROCEPHIN 1 Gm-D5w 50 ml Bag** 1 G/50 ML IVPB IV SCH (08:48)
[2017-04-16] MEDS: Flonase NASAL NS SCH (08:48)
[2017-04-16] MEDS: Neurontin 100 MG PO SCH ×3 (08:48→21:58)
[2017-04-16] MEDS: MYSOLINE 50MG PO SCH ×2 (08:48→21:57)
[2017-04-16] MEDS: Zithromax 500 MG/ 250 ML NaCl Premix 500 MG/250 ML IVPB IV SCH (10:45)
[2017-04-16] MEDS: solu-MEDROL 40 MG IV SCH ×3 (11:31→23:56)
[2017-04-16] MEDS: Artificial Tears 15 ML OP SCH ×6 (13:44→18:00)
[2017-04-16] MEDS ORDERED: Lasix 20 MG/2 ML IV ONE (15:22)
[2017-04-16] MEDS: Mucinex 600MG ER Tabs PO SCH ×2 (16:36→22:35)
[2017-04-16 19:25] LABS: BAND 6 % (0.0-2.0); Total Cells Counted 100
[2017-04-16 19:27] LABS: Platelet Estimate NORMAL (NORMAL)
[2017-04-16] MEDS: MAG-OX 400 PO SCH (21:57)
[2017-04-16] MEDS: SENOKOT 8.6 MG PO PRN (21:57)
[2017-04-16] MEDS: Requip 0.5 MG PO SCH (21:57)
[2017-04-16] MEDS: Protonix 40MG Tablet PO SCH (21:58)
[2017-04-16] MEDS: Lubrifresh P.M. 3.5 gm Ointment OP SCH (21:58)
[2017-04-17] MEDS: DUONEB 0.5-3 MG/3 ml Neb IH SCH ×3 (03:09→10:52)
[2017-04-17] MEDS: solu-MEDROL 40 MG IV SCH ×2 (05:53→12:55)
[2017-04-17 06:05] LABS: Mean Cell Volume 95.6 fl (78-100); Mean Corpuscular Hemoglobin 30.5 pg (26-32); Mean Platelet Volume 10.4 fl (6-9.5); Platelet Count 202 K/mm3 (150-450); Red Blood Count 3.18 M/mm3 (4.1-5.4); Red Cell Distribution Width 14.9 % (11.5-14.0); White Blood Count 5.8 K/mm3 (4.0-10.5)
[2017-04-17 06:21] LABS: ANION GAP 10.9 MEQ/L (5-15); BILIRUBIN,TOTAL 0.3 mg/dL (0.2-1.0); Carbon Dioxide 29.3 mEq/L (21-32); Potassium 4.3 mEq/L (3.5-5.1); Total Protein 6.4 gm/dL (6.4-8.2)
[2017-04-17] MEDS: Advair Hfa 115/21 Common canister IH SCH (07:13)
[2017-04-17 07:28] LABS: Total Cells Counted 100
[2017-04-17 07:31] LABS: Platelet Estimate NORMAL (NORMAL)
[2017-04-17] MEDS: NovoLOG Insulin SQ PRN (07:51)
[2017-04-17] MEDS: Neurontin 100 MG PO SCH ×2 (09:46→14:49)
[2017-04-17] MEDS: ROCEPHIN 1 Gm-D5w 50 ml Bag** 1 G/50 ML IVPB IV SCH (09:46)
[2017-04-17] MEDS: Flonase NASAL NS SCH (09:46)
[2017-04-17] MEDS: CLARITIN 10 MG PO SCH (09:47)
[2017-04-17] MEDS: MYSOLINE 50MG PO SCH (09:47)
[2017-04-17] MEDS: Mucinex 600MG ER Tabs PO SCH (09:47)
[2017-04-17] MEDS: ULTRAM 50 MG PO SCH (09:47)
[2017-04-17] MEDS: XANAX 1 MG PO SCH ×2 (09:47→12:55)
[2017-04-17] MEDS: Tessalon Perles 100 MG PO PRN ×2 (09:52→14:56)
[2017-04-17] MEDS: Wellbutrin SR 150 MG PO SCH (09:52)
[2017-04-17] MEDS: Artificial Tears 15 ML OP SCH ×4 (09:53→14:49)
[2017-04-17] MEDS: Zithromax 500 MG/ 250 ML NaCl Premix 500 MG/250 ML IVPB IV SCH ×2 (10:25→13:00)
[2017-04-17 11:37] VITALS: BP 147/79; O2SAT 94
--- NOTE | 2017-04-17 12:19 | PCM.NOTE ---
Date and Time: 04/17/17 1214 Subjective Assessment: Feeling better, still having lots of cough. O2 decreased from 5L to 3 L NC last night; states she has a little more trouble getting her breath. Home O2 on 2L NC at [place]. Has not been up walking around today. - Review of Systems Constitutional: No Fever Respiratory: Cough Objective Exam General Appearance: no apparent distress Neurologic Exam: alert, oriented x 3, cooperative Skin Exam: normal color, warm, dry Respiratory Exam: normal breath sounds, lungs clear, No crackles/rales, No rhonchi, No wheezing Cardiovascular Exam: regular rate/rhythm, normal heart sounds, No murmur Extremity Exam: No pedal edema, No swelling OBJECTIVE DATA Vital Signs: Vital Signs - 24 hr Temp Pulse Resp BP Pulse Ox 04/17/17 11:36 98.1 F 99 H 18 147/79 94 L 04/17/17 10:52 84 18 95 04/17/17 09:00 20 04/17/17 07:21 98.1 F 98 H 18 109/65 97 04/17/17 07:00 95 H 18 94 L 04/17/17 05:00 20 04/17/17 04:00 98.1 F 91 H 19 124/57 94 L 04/17/17 03:14 91 H 19 94 L 04/17/17 01:00 20 04/17/17 00:00 98.1 F 95 H 20 141/65 94 L 04/16/17 23:36 94 H 19 94 L 04/16/17 21:00 20 04/16/17 20:00 98.4 F 97 H 20 140/65 96 04/16/17 19:41 94 H 22 96 04/16/17 17:00 20 04/16/17 16:20 98 F 92 H 20 129/78 95 04/16/17 16:09 98 F 74 20 135/63 95 04/16/17 14:56 85 18 93 L 04/16/17 12:15 97.6 F 106 H 20 136/63 92 L Oxygen-Last 24 hours O2 Percentage 4 Liters = 36% O2 Percentage 5 Liters = 40% O2 Percentage 5 Liters = 40% O2 Percentage 5 Liters = 40% O2 Percentage 5 Liters = 40% O2 Percentage 5 Liters = 40% O2 Percentage 6 Liters = 44% Pain Assessment - Last Documented Pain Intensity 3 Pain Scale Used 0-10 Pain Scale Intake and Output: Intake & Output 04/15/17 04/16/17 04/17/17 04/18/17 11:59 11:59 11:59 11:59 Intake Total 3372 580 1960 Output Total 2100 1500 700 Balance 1272 -920 1260 Lab Results: Accuchecks Date 04/17/17 Date 04/17/17 Date 04/16/17 Date 04/16/17 Date 04/16/17 Time 11:58 Time 07:34 Time 21:00 Time 16:00 Time 16:00 Accucheck Value: 127 Accucheck Value: 201 Accucheck Value: 222 Accucheck Value: 173 Accucheck Value: 173 Lab Results-Last 24 Hours 04/16/17 04/17/17 04/17/17 Range/Units 05:15 05:54 05:54 WBC 3.4 L 5.8 (4.0-10.5) K/mm3 RBC 3.35 L 3.18 L (4.1-5.4) M/mm3 Hgb 10.4 L 9.7 L (12.0-16.0) gm/dl Hct 31.9 L 30.4 L (35-47) % MCV 95.2 95.6 (78-100) fl MCH 31.0 30.5 (26-32) pg MCHC 32.6 31.9 L (32-36) g/dl RDW 14.9 H 14.9 H (11.5-14.0) % Plt Count 179 202 (150-450) K/mm3 MPV 10.3 H 10.4 H (6-9.5) fl Segmented Neutrophils 88 H 92 H (36.0-66.0) % Band Neutrophils 6 H (0.0-2.0) % Lymphocytes (Manual) 5 L 7 L (24-44) % Monocytes (Manual) 1 1 (0.0-12.0) % Differential Comment NORMAL NORMAL Platelet Estimate NORMAL NORMAL (NORMAL) Sodium 136 (136-145) mEq/L Potassium 4.3 (3.5-5.1) mEq/L Chloride 100 (98-107) mEq/L Carbon Dioxide 29.3 (21-32) mEq/L Anion Gap 10.9 (5-15) MEQ/L BUN 27 H (9-20) mg/dL Creatinine 1.05 (0.55-1.30) mg/dl Estimated GFR 53 ML/MIN Glucose 201 H (70-110) MG/DL Calcium 9.0 (8.5-10.1) mg/dL Total Bilirubin 0.30 (0.2-1.0) mg/dL AST 9 L (15-37) U/L ALT 15 (12-78) U/L Alkaline Phosphatase 74 (46-116) U/L Serum Total Protein 6.4 (6.4-8.2) gm/dL Albumin 3.0 L (3.4-5.0) g/dL Assessment/Plan (1) COPD exacerbation Current Visit: Yes Status: Acute Assessment & Plan: On IV rocephin and zitrhomax with IV steroid added yesterday. She is improving ; oxygenation is improving. Will need continued treatment likely for several more days. Code(s): J44.1 - CHRONIC OBSTRUCTIVE PULMONARY DISEASE W (ACUTE) EXACERBATION (2) Hypoxemia Current Visit: Yes Status: Acute Code(s): R09.02 - HYPOXEMIA (3) RLL pneumonia Current Visit: Yes Status: Acute Qualifiers: Pneumonia type: due to unspecified organism Qualified Code(s): J18.1 - Lobar pneumonia, unspecified organism Assessment & Plan: On IV rocephin and zithromax; starting to improve. Code(s): J18.1 - LOBAR PNEUMONIA, UNSPECIFIED ORGANISM (4) Diabetes Current Visit: No Status: Chronic Qualifiers: Diabetes mellitus type: type 2 Diabetes mellitus complication status: without complication Diabetes mellitus terminal system operator insulin use: without custodial use Qualified Code(s): E11.9 - Type 2 diabetes mellitus without complications Assessment & Plan: accuchecks 127-222 here Code(s): E11.9 - TYPE 2 DIABETES MELLITUS WITHOUT COMPLICATIONS (5) Altered mental status Current Visit: Yes Status: Resolved Assessment & Plan: completely oriented for me today. Code(s): R41.82 - ALTERED MENTAL STATUS, UNSPECIFIED (6) Epistaxis Current Visit: Yes Status: Resolved Code(s): R04.0 - EPISTAXIS (7) Chronic hypoxemic respiratory failure Current Visit: Yes Status: Chronic Assessment & Plan: ON home O2 at 2L NC
--- NOTE | 2017-04-17 12:22 | PCM.DS ---
Discharge Summary Date of Admission: 04/13/17 12:17 Admitting Physician: JAYNA LOPEZ Primary Care Provider: DELTA MIRANDA Allergies Allergies fluoxetine HCl [From Prozac] Allergy (Verified 04/13/17 10:51) Sulfa (Sulfonamide Antibiotics) Allergy (Verified 04/13/17 10:51) Hospital Summary - Hospital Course Hospital Course: Pt admitted with PNA and COPD exacerbation, after 4d starting to improve with decreased oxygen requirement. Will continue on current regimen, including IV steroids. Xarelto held for nose bleed; resolved. Pt chronically uses walker; will start getting her out of bed with assistance. - Vitals & Intake/Output Vital Signs: Vital Signs Temperature 98.1 F 04/17/17 11:36 Pulse Rate 99 H 04/17/17 11:36 Respiratory Rate 18 04/17/17 11:36 Blood Pressure 147/79 04/17/17 11:36 O2 Sat by Pulse Oximetry 94 L 04/17/17 11:36 Oxygen-Last Documented O2 Percentage 4 Liters = 36% Intake & Output: Intake & Output 04/15/17 04/16/17 04/17/17 04/18/17 11:59 11:59 11:59 11:59 Intake Total 3372 580 1960 Output Total 2100 1500 700 Balance 1272 -920 1260 - Lab Result Diagrams: 04/17/17 05:54 04/17/17 05:54 Lab Results-Last 24 Hrs: Accuchecks Date 04/17/17 Date 04/17/17 Date 04/16/17 Date 04/16/17 Date 04/16/17 Time 11:58 Time 07:34 Time 21:00 Time 16:00 Time 16:00 Accucheck Value: 127 Accucheck Value: 201 Accucheck Value: 222 Accucheck Value: 173 Accucheck Value: 173 Lab Results-Last 24 Hours 04/16/17 04/17/17 04/17/17 Range/Units 05:15 05:54 05:54 WBC 3.4 L 5.8 (4.0-10.5) K/mm3 RBC 3.35 L 3.18 L (4.1-5.4) M/mm3 Hgb 10.4 L 9.7 L (12.0-16.0) gm/dl Hct 31.9 L 30.4 L (35-47) % MCV 95.2 95.6 (78-100) fl MCH 31.0 30.5 (26-32) pg MCHC 32.6 31.9 L (32-36) g/dl RDW 14.9 H 14.9 H (11.5-14.0) % Plt Count 179 202 (150-450) K/mm3 MPV 10.3 H 10.4 H (6-9.5) fl Segmented Neutrophils 88 H 92 H (36.0-66.0) % Band Neutrophils 6 H (0.0-2.0) % Lymphocytes (Manual) 5 L 7 L (24-44) % Monocytes (Manual) 1 1 (0.0-12.0) % Differential Comment NORMAL NORMAL Platelet Estimate NORMAL NORMAL (NORMAL) Sodium 136 (136-145) mEq/L Potassium 4.3 (3.5-5.1) mEq/L Chloride 100 (98-107) mEq/L Carbon Dioxide 29.3 (21-32) mEq/L Anion Gap 10.9 (5-15) MEQ/L BUN 27 H (9-20) mg/dL Creatinine 1.05 (0.55-1.30) mg/dl Estimated GFR 53 ML/MIN Glucose 201 H (70-110) MG/DL Calcium 9.0 (8.5-10.1) mg/dL Total Bilirubin 0.30 (0.2-1.0) mg/dL AST 9 L (15-37) U/L ALT 15 (12-78) U/L Alkaline Phosphatase 74 (46-116) U/L Serum Total Protein 6.4 (6.4-8.2) gm/dL Albumin 3.0 L (3.4-5.0) g/dL Micro Results-Entire Visit: Microbiology 04/13/17 22:00 Gram Stain - Final Sputum - Expectorant Sputum Culture - Final ORGANISMS ISOLATED ARE CONSISTENT WITH NORMAL RESP TOMI MODERATE GROWTH, NO PREDOMINANT ORGANISM Accuchecks Date 04/17/17 Date 04/17/17 Date 04/16/17 Date 04/16/17 Date 04/16/17 Time 11:58 Time 07:34 Time 21:00 Time 16:00 Time 16:00 Accucheck Value: 127 Accucheck Value: 201 Accucheck Value: 222 Accucheck Value: 173 Accucheck Value: 173 - Procedures and Test Procedures and Tests throughout Hospitalization: Therapy Orders & Screens 04/13/17 13:16 OT Screen per Nursing Assess Comment: Protocol Order Physician Instructions: Greater than 3 points order OT Admission Screening Reason For Exam: Triggered on Admission Diagnosis: rll pneumonia Open Wound/Cellutlitis/Pressure Ulcers: No Acute Fx/ORIF/Change in wt bearing status: Yes Severe MUSCULOSKELETAL pain: No ADL Dysfunction: No Acute CVA w/Hemiparesis/Hemiplegia: No Decreased Functional Mobility/Strength: Yes Sprain/Strain: No Acute Post-op Mobility Dysfunction: No Total Points: 6 PT Screen per Nursing Assess ONCE Comment: Protocol Order Physician Instructions: Greater than 3 points order PT Admission Screenin Reason For Exam: Triggered on Admission Diagnosis: rll pneumonia Open Wound/Cellutlitis/Pressure Ulcers: No Acute Fx/ORIF/Change in wt bearing status: Yes Severe MUSCULOSKELETAL pain: No ADL Dysfunction: No Acute CVA w/Hemiparesis/Hemiplegia: No Decreased Functional Mobility/Strength: Yes Sprain/Strain: No Acute Post-op Mobility Dysfunction: No Total Points: 6 RT Screen per Nursing Assess ONCE Comment: Protocol Order Physician Instructions: Greater than 3 points order RT Admission Screen Reason For Exam: Triggered on Admission Diagnosis: rll pneumonia Diagnosis: rll pneumonia Pneumonia: Yes Home O2: Yes Asthma: Yes CHF: No Home CPAP/BIPAP: No Home Nebs/MDI: No Total Points: 12 ST Screen per Nursing Assess Comment: Protocol Order Physician Instructions: Greater than [address] Admission Screening Reason For Exam: Triggered on Admission Diagnosis: rll pneumonia CVA/Dyshpagia/Aphasia: No Cognitive Deficits: No Dehydration/Nutrition Deficit: No Reflux: No Oral-Motor Difficulties: No Pneumonia: Yes Fdc Resident: Yes Total Points: 10 04/13/17 14:17 Respiratory Nebulizer UD Comment: LAKEISHA Q4PRN Diagnosis: rll pneumonia 04/13/17 19:00 Respiratory MDI BID Comment: manoj bid Diagnosis: rll pneumonia 04/13/17 19:27 Flutter Therapy UD Comment: Diagnosis: rll pneumonia 04/13/17 21:56 Sputum Specimen Obtain .as ordered Comment: Diagnosis: rll pneumonia 04/15/17 19:00 Respiratory Nebulizer Q4H Comment: LAKEISHA Q4 Diagnosis: rll pneumonia Discharge Exam General Appearance: no apparent distress Neurologic Exam: alert, oriented x 3, cooperative Skin Exam: normal color, warm, dry Respiratory Exam: normal breath sounds, lungs clear, No crackles/rales, No rhonchi, No wheezing Cardiovascular Exam: regular rate/rhythm, normal heart sounds, No murmur Extremity Exam: No pedal edema, No swelling Final Diagnosis/Problem List - Final Discharge Diagnosis/Problem (1) COPD exacerbation Current Visit: Yes Status: Acute Assessment & Plan: on IV abx - zithromax and rocephin - and steroids. starting to improve; will elias need several more days of IV treatment before being discharged back to [facility]. (2) Hypoxemia Current Visit: Yes Status: Acute Assessment & Plan: O2 requirement better, on 3 L NC this morning but feeling some SOB. (3) RLL pneumonia Current Visit: Yes Status: Acute Assessment & Plan: On IV abx. (4) Diabetes Current Visit: No Status: Chronic Assessment & Plan: BS 127-222 here. (5) Altered mental status Current Visit: Yes Status: Resolved (6) Epistaxis Current Visit: Yes Status: Resolved Assessment & Plan: Was serious enough to hold her Xarelto here; will continue holding for now. (7) Chronic hypoxemic respiratory failure Current Visit: Yes Status: Chronic Assessment & Plan: ON 2L NC at [facility]. - [facility] Condition: Fair Prescriptions: No Action Rivaroxaban [Xarelto] 10 mg PO DAILY Primidone 50 MG [Mysoline 50Mg] 1 tab PO BID Magnesium 200 mg PO HS Esomeprazole Magnesium [Nexium] 40 mg PO HS Bupropion HCl [Wellbutrin Sr] 150 mg PO DAILY Lisinopril 10 mg [Zestril 10 MG] 20 mg PO DAILY Donepezil HCl 10 mg [Aricept 10 MG] 10 mg PO HS Tramadol HCl 50 mg [Ultram 50 mg] 50 mg PO BID Alprazolam 1 mg [Xanax 1 mg] 1 mg PO QID Carboxymethylcellulos/Glycerin [Refresh Optive Eye Drops] 2 drp OP Q2H Sennosides [Senna Laxative] 8.6 mg PO BID Gabapentin [Neurontin] 100 mg PO TID Benzonatate [Tessalon Perle] 200 mg PO TID Ropinirole HCl 0.5 mg [Requip 0.5 MG] 1 mg PO HS Omeprazole 20 MG [Prilosec 20 mg] 20 mg PO BID Olopatadine HCl [Pataday] 2.5 ml OP DAILY Fluticasone Propionate [Flonase NASAL] 16 gm NS DAILY Dextran 70/Hypromellose [Artificial Tears Eye Drops] 1 drp OP HS Fluticasone/Vilanterol [Breo Ellipta 100-25 Mcg INH] 1 each IH DAILY Mineral Oil/Petrolatum,White [Refresh P.m. Ointment] 3.5 gm OP HS Loratadine 10 mg [Claritin 10 mg] 1 tab PO DAILY Follow up with: DELTA MIRANDA MD [Primary Care Provider] - Forms: Patient Portal Information
[2017-04-17 14:44] VITALS: PULSE 89
== END 2017-04-17 14:30 | disposition swing bed (61) | DRG 190 ==
LOC: ED 09:44 → MED SURG 12:17
PROVIDERS: ADMIT Family Medicine; ATTEND Family Medicine
DX: J44.1 Chronic obstructive pulmonary disease with (acute) exacerbation (principal); J18.1 Lobar pneumonia, unspecified organism; J96.11 Chronic respiratory failure with hypoxia; E11.9 Type 2 diabetes mellitus without complications; R41.82 Altered mental status, unspecified; R04.0 Epistaxis; I10 Essential (primary) hypertension; M19.90 Unspecified osteoarthritis, unspecified site; J45.909 Unspecified asthma, uncomplicated; K21.9 Gastro-esophageal reflux disease without esophagitis; F41.8 Other specified anxiety disorders; T45.515A Adverse effect of anticoagulants, initial encounter; Z79.01 Long term (current) use of anticoagulants; Z79.899 Other long term (current) drug therapy
CPT/HCPCS: 36000; 36415; 70450; 71010; 80053; 81000; 82805; 82962; 83036; 83605; 84484; 85025; 85610; 85730; 87040; 87070; 87086; 93005; 93041; 94640; 94667; 94668; 94760; 96360; 96361; 96365; 96366; 99285; J0456; J0696; J1940; J2920; J2930; P9612; A9270-GY

== ENCOUNTER 2017-04-17 14:30 | Inpatient (IN) | payer MEDICARE ==
[2017-04-17] MEDS ORDERED: MEDICATION INTERVENTION MC PRN (15:19)
[2017-04-17] MEDS ORDERED: SENOKOT 8.6 MG PO PRN (15:19)
[2017-04-17] MEDS ORDERED: TYLENOL 325 MG PO PRN (15:19)
[2017-04-17] MEDS ORDERED: DUONEB 0.5-3 MG/3 ml Neb IH SCH (15:19)
[2017-04-17] MEDS: Artificial Tears 15 ML OP SCH ×4 (15:20→23:41)
[2017-04-17] MEDS ORDERED: DUONEB 0.5-3 MG/3 ml Neb IH PRN (15:43)
[2017-04-17] MEDS: XANAX 1 MG PO SCH ×2 (17:27→21:52)
[2017-04-17] MEDS: solu-MEDROL 40 MG IV SCH ×2 (17:27→23:43)
[2017-04-17] MEDS: Advair Hfa 115/21 Common canister IH SCH (19:37)
[2017-04-17] MEDS: Lubrifresh P.M. 3.5 gm Ointment OP SCH (21:30)
[2017-04-17] MEDS: Requip 0.5 MG PO SCH (21:50)
[2017-04-17] MEDS: Protonix 40MG Tablet PO SCH (21:50)
[2017-04-17] MEDS: MYSOLINE 50MG PO SCH (21:50)
[2017-04-17] MEDS: ULTRAM 50 MG PO SCH (21:52)
[2017-04-17] MEDS: Neurontin 100 MG PO SCH (21:52)
[2017-04-17] MEDS: MAG-OX 400 PO SCH (21:56)
[2017-04-17] MEDS: Tessalon Perles 100 MG PO PRN (22:08)
[2017-04-17] MEDS: NovoLOG Insulin SQ PRN (22:09)
[2017-04-18] MEDS: Artificial Tears 15 ML OP SCH ×12 (03:15→22:59)
[2017-04-18] MEDS: solu-MEDROL 40 MG IV SCH ×4 (05:35→23:02)
[2017-04-18] MEDS: Advair Hfa 115/21 Common canister IH SCH ×2 (07:00→18:53)
[2017-04-18] MEDS: CLARITIN 10 MG PO SCH (08:51)
[2017-04-18] MEDS: Neurontin 100 MG PO SCH ×3 (08:52→21:13)
[2017-04-18] MEDS: ULTRAM 50 MG PO SCH ×2 (08:52→21:13)
[2017-04-18] MEDS: MYSOLINE 50MG PO SCH ×2 (08:52→21:13)
[2017-04-18] MEDS: Wellbutrin SR 150 MG PO SCH (08:52)
[2017-04-18] MEDS: XANAX 1 MG PO SCH ×4 (08:53→21:12)
[2017-04-18] MEDS: ROCEPHIN 1 Gm-D5w 50 ml Bag** 1 G/50 ML IVPB IV SCH (09:25)
[2017-04-18] MEDS ORDERED: Aplisol ID SCH (10:00)
[2017-04-18] MEDS: Zithromax 500 MG/ 250 ML NaCl Premix 500 MG/250 ML IVPB IV SCH (10:02)
[2017-04-18] MEDS: Tessalon Perles 100 MG PO PRN ×2 (13:27→21:13)
[2017-04-18] MEDS: Protonix 40MG Tablet PO SCH (21:12)
[2017-04-18] MEDS: Requip 0.5 MG PO SCH (21:12)
[2017-04-18] MEDS: MAG-OX 400 PO SCH (21:13)
[2017-04-18] MEDS: Lubrifresh P.M. 3.5 gm Ointment OP SCH (21:17)
[2017-04-19] MEDS: Artificial Tears 15 ML OP SCH ×3 (01:34→05:21)
[2017-04-19] MEDS: solu-MEDROL 40 MG IV SCH ×4 (05:16→23:35)
[2017-04-19] MEDS: Advair Hfa 115/21 Common canister IH SCH ×2 (06:32→19:50)
--- NOTE | 2017-04-19 08:03 | PCM.NOTE ---
Date and Time: 04/19/17 08 Subjective Assessment: patient with no specific complaints, still wheezing and just doesn't feel good. Objective Exam General Appearance: no apparent distress, alert Skin Exam: normal color, warm, dry Respiratory Exam: wheezing, No respiratory distress Cardiovascular Exam: regular rate/rhythm, normal heart sounds Gastrointestinal/Abdomen Exam: soft, No tenderness, No mass OBJECTIVE DATA Vital Signs: Vital Signs - 24 hr Temp Pulse Resp BP Pulse Ox 04/19/17 07:39 98.1 F 90 20 151/75 95 04/19/17 06:35 90 20 95 04/19/17 02:00 19 04/18/17 21:48 19 04/18/17 20:00 97.9 F 99 H 21 129/60 93 L 04/18/17 18:53 86 20 04/18/17 18:00 20 04/18/17 14:00 20 Oxygen-Last 24 hours O2 Percentage 3 Liters = 32% O2 Percentage 4 Liters = 36% Pain Assessment - Last Documented Pain Intensity 0 Pain Scale Used FLACC Intake and Output: Intake & Output 04/16/17 04/17/17 04/18/17 04/19/17 11:59 11:59 11:59 11:59 Intake Total 1560 970 Output Total 1800 1300 Balance -240 -330 Weight 69.4 kg Lab Results: Accuchecks Date 04/19/17 Date 04/18/17 Date 04/18/17 Date 04/18/17 Time 07:30 Time 21:00 Time 16:30 Time 11:30 Accucheck Value: 187 Accucheck Value: 234 Accucheck Value: 122 Accucheck Value: 174 Assessment/Plan (1) COPD exacerbation Current Visit: No Status: Acute Assessment & Plan: continue IV solumedrol, rocephin/zithromax and nebs Code(s): J44.1 - CHRONIC OBSTRUCTIVE PULMONARY DISEASE W (ACUTE) EXACERBATION (2) RLL pneumonia Current Visit: No Status: Acute Qualifiers: Code(s): J18.1 - LOBAR PNEUMONIA, UNSPECIFIED ORGANISM
[2017-04-19] MEDS: ROCEPHIN 1 Gm-D5w 50 ml Bag** 1 G/50 ML IVPB IV SCH (08:41)
[2017-04-19] MEDS: XANAX 1 MG PO SCH ×4 (08:41→21:49)
[2017-04-19] MEDS: ULTRAM 50 MG PO SCH ×2 (08:41→21:49)
[2017-04-19] MEDS: Wellbutrin SR 150 MG PO SCH (08:41)
[2017-04-19] MEDS: Zithromax 500 MG/ 250 ML NaCl Premix 500 MG/250 ML IVPB IV SCH (08:41)
[2017-04-19] MEDS: Neurontin 100 MG PO SCH ×3 (08:41→21:49)
[2017-04-19] MEDS: CLARITIN 10 MG PO SCH (08:41)
[2017-04-19] MEDS: MYSOLINE 50MG PO SCH ×2 (08:41→21:50)
[2017-04-19] MEDS: Artificial Tears 15 ML OP PRN (09:01)
[2017-04-19] MEDS: Flonase NASAL NS SCH (09:27)
[2017-04-19] MEDS: Tessalon Perles 100 MG PO PRN ×2 (15:43→21:59)
[2017-04-19] MEDS: MAG-OX 400 PO SCH (21:49)
[2017-04-19] MEDS: Protonix 40MG Tablet PO SCH (21:49)
[2017-04-19] MEDS: Requip 0.5 MG PO SCH (21:50)
[2017-04-19] MEDS: NovoLOG Insulin SQ PRN (21:51)
[2017-04-19] MEDS: Lubrifresh P.M. 3.5 gm Ointment OP SCH (21:52)
[2017-04-19] MEDS ORDERED: Mucinex 600MG ER Tabs PO SCH (22:00)
[2017-04-20] MEDS: solu-MEDROL 40 MG IV SCH ×4 (05:33→23:23)
[2017-04-20] MEDS: Advair Hfa 115/21 Common canister IH SCH ×2 (07:17→19:24)
[2017-04-20] MEDS: Artificial Tears 15 ML OP PRN (08:28)
[2017-04-20] MEDS: Flonase NASAL NS SCH (08:28)
[2017-04-20] MEDS: MYSOLINE 50MG PO SCH ×2 (08:29→21:08)
[2017-04-20] MEDS: CLARITIN 10 MG PO SCH (08:29)
[2017-04-20] MEDS: Zithromax 500 MG/ 250 ML NaCl Premix 500 MG/250 ML IVPB IV SCH (08:29)
[2017-04-20] MEDS: Neurontin 100 MG PO SCH ×3 (08:29→21:07)
[2017-04-20] MEDS: XANAX 1 MG PO SCH ×4 (08:29→21:07)
[2017-04-20] MEDS: ROCEPHIN 1 Gm-D5w 50 ml Bag** 1 G/50 ML IVPB IV SCH (08:29)
[2017-04-20] MEDS: Tessalon Perles 100 MG PO PRN ×2 (08:29→21:05)
[2017-04-20] MEDS: ULTRAM 50 MG PO SCH ×2 (08:29→21:04)
[2017-04-20] MEDS: Wellbutrin SR 150 MG PO SCH (08:29)
[2017-04-20] MEDS: NovoLOG Insulin SQ PRN (20:59)
[2017-04-20] MEDS: Lubrifresh P.M. 3.5 gm Ointment OP SCH (21:01)
[2017-04-20] MEDS: MAG-OX 400 PO SCH (21:03)
[2017-04-20] MEDS: Requip 0.5 MG PO SCH (21:07)
[2017-04-20] MEDS: Protonix 40MG Tablet PO SCH (21:07)
[2017-04-21] MEDS: solu-MEDROL 40 MG IV SCH (05:50)
[2017-04-21 07:03] VITALS: BP 153/70
[2017-04-21] MEDS: Advair Hfa 115/21 Common canister IH SCH (07:41)
[2017-04-21 07:45] VITALS: PULSE 88; O2SAT 95
[2017-04-21] MEDS: Wellbutrin SR 150 MG PO SCH (08:56)
[2017-04-21] MEDS: ULTRAM 50 MG PO SCH (08:57)
[2017-04-21] MEDS: Neurontin 100 MG PO SCH (08:57)
[2017-04-21] MEDS: Flonase NASAL NS SCH (08:58)
[2017-04-21] MEDS: XANAX 1 MG PO SCH (08:58)
[2017-04-21] MEDS: ROCEPHIN 1 Gm-D5w 50 ml Bag** 1 G/50 ML IVPB IV SCH (08:58)
[2017-04-21] MEDS: MYSOLINE 50MG PO SCH (08:58)
[2017-04-21] MEDS: CLARITIN 10 MG PO SCH (08:58)
[2017-04-21] MEDS: Tessalon Perles 100 MG PO PRN (09:01)
--- NOTE | 2017-04-21 10:36 | PCM.DS ---
Discharge Summary Date of Admission: 04/17/17 14:30 Admitting Physician: DELTA MIRANDA Primary Care Provider: DELTA MIRANDA Allergies Allergies fluoxetine HCl [From Prozac] Allergy (Verified 04/13/17 10:51) Sulfa (Sulfonamide Antibiotics) Allergy (Verified 04/13/17 10:51) Hospital Summary - Hospital Course Hospital Course: patient was admitted with pneumonia, doing better. was in swing bed for steroids and IV abx. she is ready to return to [facility]. her breathing is back to baseline - Vitals & Intake/Output Vital Signs: Vital Signs Temperature 98.4 F 04/21/17 07:02 Pulse Rate 88 04/21/17 07:41 Respiratory Rate 20 04/21/17 10:00 Blood Pressure 153/70 04/21/17 07:02 O2 Sat by Pulse Oximetry 95 04/21/17 07:41 Oxygen-Last Documented O2 Percentage 2 Liters = 28% Intake & Output: Intake & Output 04/18/17 04/19/17 04/20/17 04/21/17 11:59 11:59 11:59 11:59 Intake Total 1560 1570 1070 2370 Output Total 1800 1300 Balance -759 083 3287 2370 Weight 69.4 kg 69.4 kg - Lab Lab Results-Last 24 Hrs: Accuchecks Date 04/21/17 Date 04/20/1704/20/1704/20/17 Time 07:21 Time 22:00 Time 16:30 Time 11:13 Accucheck Value: 143 Accucheck Value: 261 Accucheck Value: 142 Accucheck Value: 142 Micro Results-Entire Visit: Accuchecks Date 04/21/1704/20/1704/20/1704/20/17 Time 07:21 Time 22:00 Time 16:30 Time 11:13 Accucheck Value: 143 Accucheck Value: 261 Accucheck Value: 142 Accucheck Value: 142 - Procedures and Test Procedures and Tests throughout Hospitalization: Therapy Orders & Screens 04/17/17 15:42 Respiratory Nebulizer UD Comment: Diagnosis: Pneumonia requiring I.V. Antibiotics 04/17/17 15:44 Oxygen NASAL CANNULA 3 lpm Comment: Diagnosis: Pneumonia requiring I.V. Antibiotics 04/17/17 19:00 Respiratory MDI Q12H Comment: ADVAIR 115/21 2 PUFFS BID Diagnosis: Pneumonia requiring I.V. Antibiotics Discharge Exam General Appearance: no apparent distress, alert Respiratory Exam: crackles/rales Cardiovascular Exam: regular rate/rhythm, normal heart sounds Gastrointestinal/Abdomen Exam: soft, No tenderness, No mass Extremity Exam: normal inspection, normal range of motion Final Diagnosis/Problem List - Final Discharge Diagnosis/Problem (1) COPD exacerbation Current Visit: No Status: Acute (2) RLL pneumonia Current Visit: No Status: Acute - Discharge Disposition: Skilled Care @ [facility] Condition: Stable Prescriptions: New Amox Tr/Potass Clav. 500 mg [Augmentin 500-125 Tablet] 500 mg PO TID # 21 tablet Methylprednisolone Packet [Medrol Dosepack] 4 mg PO UD #1 packet Continue Rivaroxaban [Xarelto] 10 mg PO DAILY Primidone 50 MG [Mysoline 50Mg] 1 tab PO BID Magnesium 200 mg PO HS Esomeprazole Magnesium [Nexium] 40 mg PO HS Bupropion HCl [Wellbutrin Sr] 150 mg PO DAILY Lisinopril 10 mg [Zestril 10 MG] 20 mg PO DAILY Donepezil HCl 10 mg [Aricept 10 MG] 10 mg PO HS Tramadol HCl 50 mg [Ultram 50 mg] 50 mg PO BID Alprazolam 1 mg [Xanax 1 mg] 1 mg PO QID Carboxymethylcellulos/Glycerin [Refresh Optive Eye Drops] 2 drp OP Q2H Sennosides [Senna Laxative] 8.6 mg PO BID Gabapentin [Neurontin] 100 mg PO TID Benzonatate [Tessalon Perle] 200 mg PO TID Ropinirole HCl 0.5 mg [Requip 0.5 MG] 1 mg PO HS Omeprazole 20 MG [Prilosec 20 mg] 20 mg PO BID Olopatadine HCl [Pataday] 2.5 ml OP DAILY Fluticasone Propionate [Flonase NASAL] 16 gm NS DAILY Dextran 70/Hypromellose [Artificial Tears Eye Drops] 1 drp OP HS Fluticasone/Vilanterol [Breo Ellipta 100-25 Mcg INH] 1 each IH DAILY Mineral Oil/Petrolatum,White [Refresh P.m. Ointment] 3.5 gm OP HS Loratadine 10 mg [Claritin 10 mg] 1 tab PO DAILY Additional Instructions: resume all previous home medications at [facility] with augmentin and medrol dosepak. other meds will remain unchanged as prior to admission please. Follow up with: DELTA MIRANDA MD [Primary Care Provider] - 1 Week Forms: Patient Portal Information
[2017-04-21] MEDS: Zithromax 500 MG/ 250 ML NaCl Premix 500 MG/250 ML IVPB IV SCH (10:47)
[2017-04-28] MEDS ORDERED: Aplisol ID SCH (10:00)
== END 2017-04-21 11:55 | DRG 190 ==
LOC: MED SURG 14:30
PROVIDERS: ADMIT Family Medicine; ATTEND Family Medicine
DX: J44.1 Chronic obstructive pulmonary disease with (acute) exacerbation (principal); J18.1 Lobar pneumonia, unspecified organism; Z79.01 Long term (current) use of anticoagulants; Z79.899 Other long term (current) drug therapy; I10 Essential (primary) hypertension; F03.90 Unspecified dementia, unspecified severity, without behavioral disturbance, psychotic disturbance, mood disturbance, and anxiety; J45.909 Unspecified asthma, uncomplicated; Z86.711 Personal history of pulmonary embolism; E11.9 Type 2 diabetes mellitus without complications; M19.90 Unspecified osteoarthritis, unspecified site; K21.9 Gastro-esophageal reflux disease without esophagitis; F41.8 Other specified anxiety disorders
CPT/HCPCS: 82962; 94640; 94760; 94761; J0456; J0696; J2920; A9270-GY

== ENCOUNTER 2017-05-06 13:37 | Inpatient (IN) | payer MEDICARE ==
--- NOTE | 2017-05-06 13:53 | ERPHSYRPT ---
- History of Present Illness Time Seen by Provider: 05/06/17 13:43 Source: patient, EMS, [facility] records, old records Exam Limitations: no limitations Physician History: patient sent from [place] for evaluation of stoke; when she awoke this am she was confused, general weakness and had a fever; recently hospitalised 9 days ago fo pnuemonia; no CP; increased sob; no n&V; with sweats and ? fever; non- productive cough; no gu symptoms no diarrhea; no travel no [place] Timing/Duration: today (onset at time of arising today; ok last pm so not a candidate for TPA), sudden Severity: mild Modifying Factors: Improves With: nothing Associated Symptoms: shortness of breath, cough, fever (?), malaise Allergies/Adverse Reactions: fluoxetine HCl [From Prozac] Allergy (Verified 04/13/17 10:51) Sulfa (Sulfonamide Antibiotics) Allergy (Verified 04/13/17 10:51) Home Medications: Esomeprazole Magnesium [Nexium] 40 mg PO HS 11/11/13 [History] Magnesium 400 mg PO HS 11/11/13 [History] Primidone 50 MG [Mysoline 50Mg] 1 tab PO BID 11/11/13 [History] Rivaroxaban [Xarelto] 10 mg PO DAILY 11/11/13 [History] Bupropion HCl [Wellbutrin Sr] 150 mg PO DAILY 12/25/14 [History] Donepezil HCl 10 mg [Aricept 10 MG] 10 mg PO HS 01/29/15 [History] Lisinopril 10 mg [Zestril 10 MG] 20 mg PO DAILY 01/29/15 [History] Tramadol HCl 50 mg [Ultram 50 mg] 50 mg PO BID 01/29/15 [History] Benzonatate [Tessalon Perle] 200 mg PO TID 04/13/17 [History] Carboxymethylcellulos/Glycerin [Refresh Optive Eye Drops] 2 drp OP Q2H 04/13/17 [History] Fluticasone Propionate [Flonase NASAL] 16 gm NS DAILY 04/13/17 [History] Fluticasone/Vilanterol [Breo Ellipta 100-25 Mcg INH] 1 each IH DAILY 04/13/17 [ History] Gabapentin [Neurontin] 100 mg PO TID 04/13/17 [History] Loratadine 10 mg [Claritin 10 mg] 1 tab PO DAILY 04/13/17 [History] Mineral Oil/Petrolatum,White [Refresh P.m. Ointment] 3.5 gm OP HS 04/13/17 [ History] Olopatadine HCl [Pataday] 2.5 ml OP DAILY 04/13/17 [History] Omeprazole 20 MG [Prilosec 20 mg] 20 mg PO BID 04/13/17 [History] Ropinirole HCl 0.5 mg [Requip 0.5 MG] 1 mg PO HS 04/13/17 [History] Sennosides [Senna Laxative] 8.6 mg PO BID 04/13/17 [History] Hx Tetanus, Diphtheria Vaccination/Date Given: No Hx Influenza Vaccination/Date Given: Yes Hx Pneumococcal Vaccination/Date Given: No - Review of Systems Constitutional: Fever, Malaise, Night Sweats Eyes: No Symptoms Ears, Nose, & Throat: No Symptoms Respiratory: Cough, Dyspnea on Exertion (HORVATH), No Cyanosis, No Dyspnea, No Wheezing Cardiac: Edema, No Chest Pain, No Palpitations, No Syncope Abdominal/Gastrointestinal: No Abdominal Pain, No Nausea, No Vomiting, No Diarrhea Genitourinary Symptoms: No Symptoms Musculoskeletal: Arthralgias, No Fall, No Injury Skin: No Symptoms, Other Neurological: No Focal Weakness, No Headache, No Seizure Psychological: No Symptoms Endocrine: No Symptoms Hematologic/Lymphatic: No Symptoms Immunological/Allergic: No Symptoms - Past Medical History Pertinent Past Medical History: Yes Neurological History: Dementia ENT History: Cataracts Cardiac History: Hypertension Respiratory History: Asthma, Pulmonary Embolism Endocrine Medical History: Diabetes Type II Musculoskeletal History: Arthritis, Fractures GI Medical History: GERD History: Other Psycho-Social History: Anxiety, Depression Female Reproductive Disorders: No Pertinent History - Past Surgical History Past Surgical History: Yes Neuro Surgical History: No Pertinent History Cardiac: No Pertinent History Respiratory: No Pertinent History Gastrointestinal: No Pertinent History Genitourinary: No Pertinent History Musculoskeletal: Orthopedic Surgery Female Surgical History: Hysterectomy Other Surgical History: left PATELLA - Social History Smoking Status: Former smoker Exposure to second hand smoke: No Alcohol Use: None Drug Use: none Patient Lives Alone: No ([facility]) Significant Family History: no pertinent family hx - Female History Hx Now: No - Nursing Vital Signs Nursing Vital Signs: Initial Vital Signs Temperature 97.0 F 05/06/17 13:39 - Physical Exam General Appearance: mild distress, alert Eye Exam: PERRL/EOMI, eyes nml inspection, No photophobia Ears, Nose, Throat Exam: normal ENT inspection, TMs normal, pharynx normal, moist mucous membranes Neck Exam: normal inspection, non-tender, supple, full range of motion, No meningismus, No JVD Respiratory Exam: respiratory distress (mild tachypnea), airway intact, crackles /rales (few basilar), rhonchi (scattered bialteral ; Upper lobes > lower lobes) , No chest tenderness, No wheezing, No stridor Cardiovascular Exam: normal heart sounds, normal peripheral pulses, tachycardia , capillary refill 2-3 sec, edema (trace left ankle), No regular rate/rhythm ( irregular irregular), No murmur, No friction rub Gastrointestinal/Abdomen Exam: soft, normal bowel sounds, No tenderness, No guarding, No pulsatile mass, No rebound, No organomegaly Pelvic Exam: deferred Rectal Exam: deferred Back Exam: normal inspection, normal range of motion, No CVA tenderness, No rash Extremity Exam: normal inspection, normal range of motion, pedal edema (trace left ankel only), No eric's sign Neurologic Exam: alert, oriented x 3, cooperative, cold rolling supervisor II-XII nml as tested, normal mood/affect, nml cerebellar function, sensation nml Skin Exam: normal color, warm, dry, No rash, No petechiae, No cyanosis SpO2 Interpretation: normal SpO2: 96 Oxygen Delivery: Nasal Cannula (2/) - Course Nursing assessment & vital signs reviewed: Yes EKG Interpreted by Me: RATE (86), A-fib, Left [place] Deviation, NORMAL INTERVALS, NORMAL QRS, Non-specific ST Changes (no ischemia noted) Rhythm Strip: Rate (86), Atrial Fibrillation - Radiology Exams Chest X-ray Interpretation: Reviewed by me, Discussed w/ radiologist, Infiltrates ( increased R base; decreased left base) - CT Exams Head CT Interpretation: Tele-radiologist Report, No/Intracranial Hemorrhag (atrophy only) Ordered Tests: Active Orders 24 hr Category Date Time Status Up With Assistance TOLERATED Activity 05/06/17 16:06 Ordered Accucheck ACHS Care 05/06/17 16:06 Ordered Accucheck STAT Care 05/06/17 13:43 Active Admission/Status Order ROUTINE Care 05/06/17 16:06 Ordered Call Admit Doctor for Orders ROUTINE Care 05/06/17 16:06 Ordered Vice President & General Manager [employer] STAT Care 05/06/17 13:43 Active Cath for Specimen-Straight STAT Care 05/06/17 13:43 Active Code Status Order ROUTINE Care 05/06/17 16:06 Ordered EKG-ER Only STAT Care 05/06/17 13:43 Active IV Care Q6H Care 05/06/17 16:06 Ordered IV Insertion STAT Care 05/06/17 13:43 Active Implement CHF Pathway ROUTINE Care 05/06/17 16:06 Ordered Oxygen-ED Only NASAL CANNULA 2 lpm Care 05/06/17 13:43 Active Pulse Oximetry (ED) STAT Care 05/06/17 13:43 Active Re-Check Vital Signs STAT Care 05/06/17 13:43 Active Rectal Temperature STAT Care 05/06/17 13:43 Active Zeyad Lawler, Apply ROUTINE Care 05/06/17 16:06 Ordered Telemetry ROUTINE Care 05/06/17 16:06 Ordered Weight,Daily 0600 Care 05/06/17 16:06 Ordered 1800 Calorie ADA Diet 05/06/17 Dinner Ordered CHEST 1 VIEW (PORTABLE) Stat Exams 05/06/17 13:46 Completed HEAD WITHOUT CONTRAST [CT] Stat Exams 05/06/17 13:44 Completed BLOOD CULTURE Stat Lab 05/06/17 14:30 Received BMP AM.LAB Lab 05/07/17 04:00 Ordered CBC AM.LAB Lab 05/07/17 04:00 Ordered CBC W DIFF Stat Lab 05/06/17 13:55 Completed CMP Stat Lab 05/06/17 13:55 Completed CULTURE,URINE Stat Lab 05/06/17 14:30 Received D-DIMER QUANTITATION Stat Lab 05/06/17 14:30 Completed Lactic Acid Stat Lab 05/06/17 13:43 Completed Lactic Acid Stat Lab 05/06/17 15:59 Ordered NT PRO BNP AM.LAB Lab 05/07/17 04:00 Ordered NT PRO BNP Stat Lab 05/06/17 13:55 Completed TROPONIN Stat Lab 05/06/17 13:55 Completed UA W/ MICROSCOPIC Stat Lab 05/06/17 14:30 Completed Oxygen NASAL CANNULA 2 lpm RT 05/06/17 16:06 Ordered Transfer Order Routine Transfer 05/06/17 16:05 Ordered Medication Summary Generic Name Dose Route Start Last Admin Trade Name Nolberto PRN Reason Stop Dose Admin Ceftriaxone Sodium/Dextrose 1 g in 50 mls @ 100 mls/hr 05/06/17 15:49 Rocephin 1 Gm-D5w 50 Ml Bag IV 05/06/17 16:18 STAT ONE Discontinued Medications Generic Name Dose Route Start Last Admin Trade Name Nolberto PRN Reason Stop Dose Admin Ceftriaxone Sodium/Dextrose Confirm 05/06/17 15:54 Rocephin 1 Gm-D5w 50 Ml Bag Administered 05/06/17 15:55 Dose 1 g in 50 mls @ ud IV .STK-MED ONE Lab/Rad Data: Laboratory Result Diagrams 05/06/17 13:55 05/06/17 13:55 Laboratory Results 05/06/17 05/06/17 05/06/17 Range/Units 14:30 14:30 13:55 WBC (4.0-10.5) K/mm3 RBC (4.1-5.4) M/mm3 Hgb (12.0-16.0) gm/dl Hct (35-47) % MCV (78-100) fl MCH (26-32) pg MCHC (32-36) g/dl RDW (11.5-14.0) % Plt Count (150-450) K/mm3 MPV (6-9.5) fl Gran % (36.0-66.0) % Lymphocytes % (24.0-44.0) % Monocytes % (0.0-12.0) % Eosinophils % (0.00-5.0) % Basophils % (0.0-0.4) % Basophils # (0-0.4) D-Dimer 803 H* (0-500) ng/mL Sodium 123 L (136-145) mEq/L Potassium 4.4 (3.5-5.1) mEq/L Chloride 89 L (98-107) mEq/L Carbon Dioxide 25.5 (21-32) mEq/L Anion Gap 12.7 (5-15) MEQ/L BUN 31 H (9-20) mg/dL Creatinine 1.81 H (0.55-1.30) mg/dl Estimated GFR 28 ML/MIN Glucose 163 H (70-110) MG/DL Lactic Acid (0.4-2.0) Calcium 8.4 L (8.5-10.1) mg/dL Total Bilirubin 0.60 (0.2-1.0) mg/dL AST 21 (15-37) U/L ALT 14 (12-78) U/L Alkaline Phosphatase 93 (46-116) U/L Troponin I < 0.017 (0.000-0.056) ng/ml NT-Pro-B Natriuret Pep 81403 H (0-450) pg/ml Serum Total Protein 6.5 (6.4-8.2) gm/dL Albumin 2.6 L (3.4-5.0) g/dL Ur Collection Type CATH Urine Color YELLOW (YELLOW) Urine Appearance CLEAR (CLEAR) Urine pH 5.0 (5-6) Ur Specific [place] 1.015 (1.005-1.025) Urine Protein TRACE (Negative) Urine Ketones NEGATIVE (NEGATIVE) Urine Blood 5-10 (0-5) Donny/ul Urine Nitrite NEGATIVE (NEGATIVE) Urine Bilirubin SMALL (NEGATIVE) Urine Urobilinogen NORMAL (0-1) mg/dL Ur Leukocyte Esterase TRACE (NEGATIVE) Urine Microscopic RBC 0-2 (0-2) /HPF Urine Microscopic WBC 0-2 (0-5) /HPF Ur Epithelial Cells RARE (FEW) /HPF Amorphous Crystals FEW (NEGATIVE) /HPF Urine Bacteria RARE (NEGATIVE) /HPF Urine Mucus SLIGHT (NEGATIVE) /HPF Urine Glucose 100 (NEGATIVE) mg/dL Specimen Received 05-06-17 2053 05/06/17 05/06/17 Range/Units 13:55 13:43 WBC 9.4 (4.0-10.5) K/mm3 RBC 3.35 L (4.1-5.4) M/mm3 Hgb 10.2 L (12.0-16.0) gm/dl Hct 31.5 L (35-47) % MCV 94.0 (78-100) fl MCH 30.4 (26-32) pg MCHC 32.4 (32-36) g/dl RDW 14.9 H (11.5-14.0) % Plt Count 169 (150-450) K/mm3 MPV 11.0 H (6-9.5) fl Gran % 84.9 H (36.0-66.0) % Lymphocytes % 6.4 L (24.0-44.0) % Monocytes % 7.7 (0.0-12.0) % Eosinophils % 0.7 (0.00-5.0) % Basophils % 0.3 (0.0-0.4) % Basophils # 0.03 (0-0.4) D-Dimer (0-500) ng/mL Sodium (136-145) mEq/L Potassium (3.5-5.1) mEq/L Chloride (98-107) mEq/L Carbon Dioxide (21-32) mEq/L Anion Gap (5-15) MEQ/L BUN (9-20) mg/dL Creatinine (0.55-1.30) mg/dl Estimated GFR ML/MIN Glucose (70-110) MG/DL Lactic Acid 2.3 H (0.4-2.0) Calcium (8.5-10.1) mg/dL Total Bilirubin (0.2-1.0) mg/dL AST (15-37) U/L ALT (12-78) U/L Alkaline Phosphatase (46-116) U/L Troponin I (0.000-0.056) ng/ml NT-Pro-B Natriuret Pep (0-450) pg/ml Serum Total Protein (6.4-8.2) gm/dL Albumin (3.4-5.0) g/dL Ur Collection Type Urine Color (YELLOW) Urine Appearance (CLEAR) Urine pH (5-6) Ur Specific [place] (1.005-1.025) Urine Protein (Negative) Urine Ketones (NEGATIVE) Urine Blood (0-5) Donny/ul Urine Nitrite (NEGATIVE) Urine Bilirubin (NEGATIVE) Urine Urobilinogen (0-1) mg/dL Ur Leukocyte Esterase (NEGATIVE) Urine Microscopic RBC (0-2) /HPF Urine Microscopic WBC (0-5) /HPF Ur Epithelial Cells (FEW) /HPF Amorphous Crystals (NEGATIVE) /HPF Urine Bacteria (NEGATIVE) /HPF Urine Mucus (NEGATIVE) /HPF Urine Glucose (NEGATIVE) mg/dL Specimen Received reviewed - Progress Progress: improved, re-examined (after meds ) Progress Note: 05/06/17 13:56 will monitor; get cxr and labs and cT head; not a candidate for TPA; will recheck 05/06/17 14:[address]; lactate slightly elevated at 2.3; will evbaluate when returns for fluids and ATBs 05/06/17 14:39 VS ok; no change in status; labs pending; EKG Afib no ischemia; CXR infiiltrates ; CT ok 05/06/17 15:24 D dimer elevated but renal function elevated and cant do a CT; UA shows infection; PBNP elevted and clinically mild failyure so cant load fluids for elevated lactate; will consult with Dr Killian for disposition 05/06/17 16:03 Dr Killian consulted and will admit; ATBs started; patient and family notified; discussed VQ scan and will observe for now Discussed with .: Constantin (consulted and will admit to obs) Will see patient in: hospital (observation) Counseled pt/family regarding: lab results, diagnosis, need for follow-up, rad results - Departure Time of Disposition: 16:04 Departure Disposition: Observation Clinical Impression: CHF (congestive heart failure), Left lower lobe pneumonia, Sepsis, UTI ( urinary tract infection) Condition: Serious Critical Care Time: No Referrals: DELTA KILLIAN MD [Primary Care Provider] - Instructions: Heart Failure
[2017-05-06 13:59] LABS: Lactic Acid 2.3 (0.4-2.0)
[2017-05-06 14:15] LABS: BASOPHIL % 0.3 % (0.0-0.4); Eosinophil % 0.7 % (0.00-5.0); Granulocytes % 84.9 % (36.0-66.0); Lymphocytes % 6.4 % (24.0-44.0); Mean Corpuscular Hemoglobin 30.4 pg (26-32); Monocytes % 7.7 % (0.0-12.0); Platelet Count 169 K/mm3 (150-450); Red Blood Count 3.35 M/mm3 (4.1-5.4); Red Cell Distribution Width 14.9 % (11.5-14.0); White Blood Count 9.4 K/mm3 (4.0-10.5)
--- NOTE | 2017-05-06 14:23 | XRAY ---
Indication: Confusion. Status post fall.. Multiple contiguous axial images obtained through the head without contrast. Comparison: April 13, 2017. Again no acute intracranial hemorrhage, abnormal extraaxial fluid collection, or mass effect. Fourth ventricle is midline. Stable age appropriate global atrophy, minimal periventricular degenerative microischemia, and remote lacunar infarct of the left caudate head. Osseous structures intact. New small fluid leveling in the left maxillary sinus with stable partial opacification of the left mastoid air cells. Impression: 1. Stable nonacute senile brain with again remote left caudate lacunar infarct. 2. New left maxillary sinus disease with stable partial opacification of the left mastoid air cells again presumed inflammatory. CT DI 51.70
--- NOTE | 2017-05-06 14:25 | XRAY ---
Indication: Confusion. Status post fall. Comparison: April 13, 2017. Portable chest again hyperinflated with bibasilar infiltrates/atelectasis/effusions, increased on the left and decreased on the right. Heart is now borderline enlarged. No new abnormalities.
[2017-05-06 14:29] LABS: ALBUMIN 2.6 g/dL (3.4-5.0); ALKALINE PHOSPHATASE 93 U/L (46-116); ANION GAP 12.7 MEQ/L (5-15); BLOOD UREA NITROGEN 31 mg/dL (9-20); CHLORIDE 89 mEq/L (98-107); Carbon Dioxide 25.5 mEq/L (21-32); Glucose 163 MG/DL (70-110); Potassium 4.4 mEq/L (3.5-5.1); SGOT/AST 21 U/L (15-37); SGPT/ALT 14 U/L (12-78); SODIUM 123 mEq/L (136-145); Total Protein 6.5 gm/dL (6.4-8.2)
[2017-05-06 14:52] LABS: TROPONIN < 0.017 ng/ml (0.000-0.056)
[2017-05-06 15:20] LABS: Bacteria RARE /HPF (NEGATIVE); Bilirubin SMALL (NEGATIVE); COMPLETE URINE MICROSCOPIC? YES; Collection Type CATH; Epithelial Cells RARE /HPF (FEW); Glucose 100 mg/dL (NEGATIVE); Leukocyte Esterase TRACE (NEGATIVE); Mucus SLIGHT /HPF (NEGATIVE); WBC 0-2 /HPF (0-5)
[2017-05-06 15:21] LABS: ADD URINE CULTURE? YES (NO)
[2017-05-06] MEDS ORDERED: ROCEPHIN 1 Gm-D5w 50 ml Bag** 1 G/50 ML IVPB IV ONE ×2 (15:49→15:54)
[2017-05-06 16:44] LABS: Lactic Acid 2.2 (0.4-2.0)
[2017-05-06] MEDS ORDERED: ROCEPHIN 1 Gm-D5w 50 ml Bag** 50 ML IV SCH (19:45)
[2017-05-06] MEDS ORDERED: Colace 100 MG PO PRN (21:01)
[2017-05-06] MEDS ORDERED: Abilify 10 MG PO SCH (22:00)
[2017-05-06] MEDS ORDERED: Aricept 10 MG ONE (22:03)
[2017-05-06] MEDS: Protonix 40MG Tablet PO SCH (22:19)
[2017-05-06] MEDS: Klor Con 10 MEQ PO SCH (22:19)
[2017-05-06] MEDS: ULTRAM 50 MG PO SCH (22:19)
[2017-05-06] MEDS: MYSOLINE 50MG PO SCH (22:19)
[2017-05-06] MEDS: Requip 0.5 MG PO SCH (22:20)
[2017-05-06] MEDS: Aricept 10 MG PO SCH (22:20)
[2017-05-06] MEDS: XANAX 1 MG PO SCH ×2 (22:30→22:38)
[2017-05-06] MEDS: MAG-OX 400 PO SCH (22:39)
[2017-05-06] MEDS: Neurontin 100 MG PO SCH (22:39)
[2017-05-06] MEDS: SENOKOT 8.6 MG PO SCH (22:40)
[2017-05-07 05:53] LABS: Mean Corpuscular Hemoglobin 30.7 pg (26-32); Mean Platelet Volume 11.5 fl (6-9.5); Platelet Count 115 K/mm3 (150-450); Red Blood Count 3.19 M/mm3 (4.1-5.4); Red Cell Distribution Width 14.9 % (11.5-14.0); White Blood Count 6.3 K/mm3 (4.0-10.5)
[2017-05-07 06:28] LABS: ANION GAP 15.9 MEQ/L (5-15); Carbon Dioxide 22.2 mEq/L (21-32); Potassium 3.9 mEq/L (3.5-5.1)
[2017-05-07] MEDS: Advair Hfa 115/21 Common canister IH SCH ×2 (07:12→19:13)
[2017-05-07] MEDS ORDERED: NYSTOP POWDER 15 GM TP PRN (07:35)
[2017-05-07] MEDS ORDERED: Voltaren GEL TP PRN (07:35)
[2017-05-07] MEDS ORDERED: OCEAN Nasal Spray NS PRN (07:35)
[2017-05-07] MEDS ORDERED: CARBOXYMETHYLCELLULOS OP SCH (07:45)
[2017-05-07] MEDS ORDERED: GLYCERIN OP SCH (07:45)
[2017-05-07] MEDS ORDERED: MEDICATION INTERVENTION MC PRN (07:50)
--- NOTE | 2017-05-07 08:34 | PCM.HP ---
History of Present Illness - Chief Complaint Chief Complaint: UTI, CHF History of Present Illness: is a 81 year old female with advanced copd and chronic respiratory failure on continuous oxygen, she was recently admitted and treated for pneumonia, has done well until yesterday and became very weak, was confused apparently and has complained of cough and shortness of breath. She has minimal sputum production. - Review of Systems Constitutional: Weakness, No Fever Respiratory: Cough, Short Of Breath Cardiac: Orthopnea, No Chest Pain, No Edema, No Syncope Abdominal/Gastrointestinal: No Abdominal Pain, No Nausea, No Vomiting, No Diarrhea Genitourinary Symptoms: No Dysuria Skin: No Rash All Other Systems: Reviewed and Negative Medications & Allergies Home Medications: Home Medication List Primidone 50 MG [Mysoline 50Mg] 1 tab PO BID 11/11/13 [History Confirmed ] Rivaroxaban [Xarelto] 10 mg PO DAILY 11/11/13 [History Confirmed 05/06/17] Bupropion HCl [Wellbutrin Sr] 150 mg PO DAILY 12/25/14 [History Confirmed ] Donepezil HCl 10 mg [Aricept 10 MG] 10 mg PO HS 01/29/15 [History Confirmed 05/06/17] Lisinopril 10 mg [Zestril 10 MG] 20 mg PO DAILY 01/29/15 [History Confirmed 05/06/17] Tramadol HCl 50 mg [Ultram 50 mg] 50 mg PO BID 01/29/15 [History Confirmed 05/06/17] Benzonatate [Tessalon Perle] 200 mg PO TID 04/13/17 [History Confirmed 05/06/17] Carboxymethylcellulos/Glycerin [Refresh Optive Eye Drops] 2 drp OP Q2H 04/13/17 [History Confirmed 05/06/17] Fluticasone Propionate [Flonase NASAL] 16 gm NS DAILY 04/13/17 [History Confirmed 05/06/17] Gabapentin [Neurontin] 100 mg PO TID 04/13/17 [History Confirmed 05/06/17] Loratadine 10 mg [Claritin 10 mg] 1 tab PO DAILY 04/13/17 [History Confirmed 05/06/17] Mineral Oil/Petrolatum,White [Refresh P.m. Ointment] 3.5 gm OP HS 04/13/17 [ History Confirmed 05/06/17] Olopatadine HCl [Pataday] 2.5 ml OP DAILY 04/13/17 [History Confirmed 05/06/17] Omeprazole 20 MG [Prilosec 20 mg] 20 mg PO BID 04/13/17 [History Confirmed 05/06] Ropinirole HCl 0.5 mg [Requip 0.5 MG] 1 mg PO HS 04/13/17 [History Confirmed 05/06/17] Sennosides [Senna Laxative] 8.6 mg PO BID 04/13/17 [History Confirmed 05/06/17] Alprazolam 1 mg [Xanax 1 mg] 1 mg PO QID 05/06/17 [History Confirmed 05/06] Dextran 70/Hypromellose [Artificial Tears Eye Drops] 15 ml OP 05/06/17 [ History Confirmed 05/06/17] Diclofenac Sodium Gel [Voltaren GEL] 100 gm TP DAILY PRN 05/06/17 [ History Confirmed 05/06/17] Docusate Sodium 100 mg [Colace 100 MG] 100 mg PO DAILY PRN 05/06/17 [ History Confirmed 05/06/17] Esomeprazole Magnesium [Nexium] 20 mg PO DAILY 05/06/17 [History Confirmed 05/06] Magnesium Oxide 400 mg [Mag-Ox 400] 200 mg PO HS 05/06/17 [History Confirmed 05/06/17] Nystatin Powder 15 gm [Nystop Powder 15 gm] 15 gm TP Q8HPRN PRN 05/06/17 [ History Confirmed 05/06/17] Ropinirole HCl 0.5 mg [Requip 0.5 MG] 1 mg PO HS 05/06/17 [History Confirmed 05/06/17] Sodium Chloride [Saline Nasal [place]] 30 ml NS DAILY PRN 05/06/17 [History Confirmed 05/06/17] Allergies/Adverse Reactions: Allergies Allergy/AdvReac Type Severity Reaction Status Date / Time fluoxetine HCl [From Prozac] Allergy Verified 04/13/17 10:51 Sulfa (Sulfonamide Allergy Verified 04/13/17 10:51 Antibiotics) - Past Medical History Past Medical History: Yes Neurological History: Dementia ENT History: Cataracts Cardiac History: Arrhythmia, Hypertension Respiratory History: Asthma, Pulmonary Embolism Endocrine Medical History: Diabetes Type II Musculoskelatal History: Arthritis, Fractures GI Medical History: GERD History: Other Pyscho-Social History: Anxiety, Depression Reproductive Disorders: No Pertinent History - Female History Hx Last Menstrual Period: N/A - Past Surgical History Past Surgical History: Yes Neuro Surgical History: No Pertinent History Cardiac History: No Pertinent History Respiratory Surgery: No Pertinent History GI Surgical History: No Pertinent History Genitourinary Surgical Hx: No Pertinent History Musculskeletal Surgical Hx: Orthopedic Surgery Female Surgical History: Hysterectomy Other Surgical History: left PATELLA - Social History Smoking Status: Former smoker Exposure to second hand smoke: No Alcohol: None Drug Use: none Significant Family History: no pertinent family hx - Physical Exam Vital Signs: Vital Signs - 24 hr Temp Pulse Resp BP Pulse Ox 05/07/17 07:50 94 L 05/07/17 07:40 98 F 80 18 121/55 97 05/07/17 07:16 83 20 97 05/07/17 04:00 98.3 F 80 19 113/52 93 L 05/07/17 00:00 98.0 F 87 20 126/52 94 L 05/06/17 20:00 98.4 F 81 16 126/58 91 L 05/06/17 19:42 93 H 20 88 L 05/06/17 17:29 98.8 F 93 H 20 144/61 90 L 05/06/17 16:33 92 H 20 142/56 05/06/17 16:09 96 05/06/17 14:46 99.5 F 05/06/17 14:00 97 05/06/17 13:39 97.0 F Oxygen-Last 24 hours O2 Percentage 4 Liters = 36% O2 Percentage 3 Liters = 32% O2 Percentage 3 Liters = 32% O2 Percentage 3 Liters = 32% O2 Percentage 3 Liters = 32% O2 Percentage 4 Liters = 36% General Appearance: no apparent distress, alert Respiratory Exam: crackles/rales Cardiovascular Exam: regular rate/rhythm, normal heart sounds, normal peripheral pulses Gastrointestinal/Abdomen Exam: soft, normal bowel sounds, No tenderness, No mass Extremity Exam: normal inspection, normal range of motion, pelvis stable Results - Labs Lab/Micro Results: Accuchecks Date 05/07/17 Date 05/06/17 Time 07:19 Time 21:00 Accucheck Value: 134 Accucheck Value: 183 Lab Results-Last 24 Hours 05/06/17 05/07/17 05/07/17 Range/Units 18:44 05:49 05:49 WBC 6.3 (4.0-10.5) K/mm3 RBC 3.19 L (4.1-5.4) M/mm3 Hgb 9.8 L (12.0-16.0) gm/dl Hct 30.3 L (35-47) % MCV 95.0 (78-100) fl MCH 30.7 (26-32) pg MCHC 32.3 (32-36) g/dl RDW 14.9 H (11.5-14.0) % Plt Count 115 L (150-450) K/mm3 MPV 11.5 H (6-9.5) fl Sodium 126 L (136-145) mEq/L Potassium 3.9 (3.5-5.1) mEq/L Chloride 92 L (98-107) mEq/L Carbon Dioxide 22.2 (21-32) mEq/L Anion Gap 15.9 H (5-15) MEQ/L BUN 26 H (9-20) mg/dL Creatinine 1.28 (0.55-1.30) mg/dl Estimated GFR 42 ML/MIN Glucose 146 H (70-110) MG/DL Lactic Acid 1.4 (0.4-2.0) Calcium 8.3 L (8.5-10.1) mg/dL NT-Pro-B Natriuret Pep 9966 H (0-450) pg/ml Accuchecks Date 05/07/17 Date 05/06/17 Time 07:19 Time 21:00 Accucheck Value: 134 Accucheck Value: 183 - Radiology Impressions Radiology Exams & Impressions: Radiology Procedures Category Date Time Status ECHO W/2D AND DOPPLER [US] Routine Exams 05/07/17 08:00 Ordered - Other Procedures and Tests Respiratory Therapy 05/06/17 16:06 Oxygen NASAL CANNULA 2 lpm 05/07/17 07:00 Respiratory MDI BID Assessment/Plan (1) CHF (congestive heart failure) Current Visit: Yes Status: Acute Assessment & Plan: continue IV lasix, echo pending today. currently on xarelto so covered from anticoagulation/DVT prophylaxis. BNP has improved mildly since admission overnight Code(s): I50.9 - HEART FAILURE, UNSPECIFIED (2) Left lower lobe pneumonia Current Visit: Yes Status: Acute Assessment & Plan: rocephin and zithromax Code(s): J18.1 - LOBAR PNEUMONIA, UNSPECIFIED ORGANISM (3) COPD exacerbation Current Visit: No Status: Acute Assessment & Plan: patient typically refuses nebulizer treatments due to agitation but tolerated xopenex in the assisted so will order xopenex nebs Code(s): J44.1 - CHRONIC OBSTRUCTIVE PULMONARY DISEASE W (ACUTE) EXACERBATION (4) Chronic hypoxemic respiratory failure Current Visit: No Status: Chronic (5) Diabetes Current Visit: No Status: Chronic Qualifiers: Code(s): E11.9 - TYPE 2 DIABETES MELLITUS WITHOUT COMPLICATIONS
[2017-05-07] MEDS: Klor Con 10 MEQ PO SCH ×2 (08:52→21:36)
[2017-05-07] MEDS: XARELTO 10 MG TABLET PO SCH (08:52)
[2017-05-07] MEDS: CLARITIN 10 MG PO SCH (08:52)
[2017-05-07] MEDS: Neurontin 100 MG PO SCH ×3 (08:52→21:36)
[2017-05-07] MEDS: ULTRAM 50 MG PO SCH ×2 (08:52→21:36)
[2017-05-07] MEDS: Zestril 20 MG PO SCH (08:52)
[2017-05-07] MEDS: MYSOLINE 50MG PO SCH ×2 (08:52→21:36)
[2017-05-07] MEDS: SENOKOT 8.6 MG PO SCH ×2 (08:52→21:35)
[2017-05-07] MEDS: Wellbutrin SR 150 MG PO SCH (08:52)
[2017-05-07] MEDS: Lasix 20 MG/2 ML IV SCH ×2 (08:53→16:05)
[2017-05-07] MEDS: XANAX 1 MG PO SCH ×5 (08:53→21:40)
[2017-05-07] MEDS: Protonix 40MG Tablet PO SCH ×2 (08:53→21:36)
[2017-05-07] MEDS: ROCEPHIN 1 Gm-D5w 50 ml Bag** 1 G/50 ML IVPB IV SCH (08:54)
[2017-05-07] MEDS: Flonase NASAL NS SCH (08:57)
[2017-05-07] MEDS: Artificial Tears 15 ML OP SCH ×8 (08:58→21:37)
[2017-05-07] MEDS ORDERED: Xopenex 1.25 MG/0.5 ML UD NEBULE IH ONE (09:03)
[2017-05-07] MEDS ORDERED: Sodium Chloride 3 ML UD NEBULES IH ONE ×3 (09:04→18:58)
[2017-05-07] MEDS: Xopenex 1.25 MG/0.5 ML UD NEBULE IH SCH ×3 (09:06→19:12)
[2017-05-07] MEDS: Tessalon Perles 100 MG PO PRN (09:46)
[2017-05-07] MEDS ORDERED: XANAX 1 MG PO SCH (10:00)
[2017-05-07] MEDS ORDERED: NON-FORMULARY ITEM (Esomeprazole Magnesium [Nexium] 20 MG) PO SCH (10:00)
[2017-05-07] MEDS ORDERED: OLOPATADINE HCL OP SCH (10:00)
[2017-05-07] MEDS: MAG-OX 400 PO SCH (21:35)
[2017-05-07] MEDS: Requip 0.5 MG PO SCH (21:36)
[2017-05-07] MEDS: Aricept 10 MG PO SCH (21:36)
[2017-05-07] MEDS: Lubrifresh P.M. 3.5 gm Ointment OP SCH (21:37)
[2017-05-07] MEDS: NovoLOG Insulin SQ PRN (21:51)
[2017-05-07] MEDS ORDERED: HYPROMELLOSE OP SCH (22:00)
[2017-05-07] MEDS ORDERED: MINERAL OIL OP SCH (22:00)
[2017-05-07] MEDS ORDERED: DEXTRAN OP SCH (22:00)
[2017-05-07] MEDS ORDERED: PETROLATUM WHITE OP SCH (22:00)
[2017-05-08] MEDS: Xopenex 1.25 MG/0.5 ML UD NEBULE IH SCH ×4 (01:42→18:51)
[2017-05-08] MEDS ORDERED: Sodium Chloride 3 ML UD NEBULES IH ONE ×2 (01:42→18:44)
[2017-05-08] MEDS: Artificial Tears 15 ML OP SCH ×10 (05:50→22:35)
[2017-05-08 06:11] LABS: Mean Cell Volume 94.5 fl (78-100); Mean Corpuscular Hemoglobin 30.1 pg (26-32); Mean Platelet Volume 10.5 fl (6-9.5); Platelet Count 219 K/mm3 (150-450); Red Blood Count 2.92 M/mm3 (4.1-5.4); Red Cell Distribution Width 14.9 % (11.5-14.0); White Blood Count 3.8 K/mm3 (4.0-10.5)
[2017-05-08 06:43] LABS: ANION GAP 11.3 MEQ/L (5-15); Carbon Dioxide 27.2 mEq/L (21-32); Potassium 4.2 mEq/L (3.5-5.1)
[2017-05-08] MEDS: Advair Hfa 115/21 Common canister IH SCH ×2 (07:14→18:51)
[2017-05-08 07:19] LABS: BAND 1 % (0.0-2.0); Eosinophil 1 % (0.00-3.0); Platelet Estimate NORMAL (NORMAL); Polychromasia 1+; Total Cells Counted 100
[2017-05-08] MEDS: solu-MEDROL 125 MG IV SCH ×2 (09:35→16:01)
[2017-05-08] MEDS: Wellbutrin SR 150 MG PO SCH (09:36)
[2017-05-08] MEDS: ROCEPHIN 1 Gm-D5w 50 ml Bag** 1 G/50 ML IVPB IV SCH (09:36)
[2017-05-08] MEDS: ULTRAM 50 MG PO SCH ×2 (09:36→22:34)
[2017-05-08] MEDS: Klor Con 10 MEQ PO SCH ×2 (09:36→22:34)
[2017-05-08] MEDS: XARELTO 10 MG TABLET PO SCH (09:36)
[2017-05-08] MEDS: Zestril 20 MG PO SCH (09:36)
[2017-05-08] MEDS: MYSOLINE 50MG PO SCH ×2 (09:36→22:34)
[2017-05-08] MEDS: XANAX 1 MG PO SCH ×4 (09:36→22:38)
[2017-05-08] MEDS: Lasix 20 MG/2 ML IV SCH ×2 (09:37→16:01)
[2017-05-08] MEDS: Neurontin 100 MG PO SCH ×3 (09:37→22:34)
[2017-05-08] MEDS: CLARITIN 10 MG PO SCH (09:37)
[2017-05-08] MEDS: Flonase NASAL NS SCH (09:38)
[2017-05-08] MEDS: SENOKOT 8.6 MG PO SCH ×2 (09:41→22:34)
[2017-05-08] MEDS: Protonix 40MG Tablet PO SCH ×2 (09:44→22:34)
[2017-05-08] MEDS: Tessalon Perles 100 MG PO PRN (09:45)
[2017-05-08] MEDS: Zithromax 500 MG/ 250 ML NaCl Premix 500 MG/250 ML IVPB IV SCH (10:45)
[2017-05-08] MEDS: NovoLOG Insulin SQ PRN ×3 (12:41→22:42)
[2017-05-08] MEDS: Requip 0.5 MG PO SCH (22:33)
[2017-05-08] MEDS: MAG-OX 400 PO SCH (22:34)
[2017-05-08] MEDS: Aricept 10 MG PO SCH (22:34)
[2017-05-08] MEDS: Lubrifresh P.M. 3.5 gm Ointment OP SCH (22:36)
[2017-05-09] MEDS: solu-MEDROL 125 MG IV SCH ×5 (00:44→22:31)
[2017-05-09] MEDS ORDERED: Sodium Chloride 3 ML UD NEBULES IH ONE (00:48)
[2017-05-09] MEDS: Xopenex 1.25 MG/0.5 ML UD NEBULE IH SCH ×4 (00:50→18:44)
[2017-05-09] MEDS: Tessalon Perles 100 MG PO PRN (05:07)
[2017-05-09] MEDS: Artificial Tears 15 ML OP SCH ×9 (05:20→22:20)
[2017-05-09 05:38] LABS: Mean Cell Volume 93.9 fl (78-100); Mean Corpuscular Hemoglobin 30.2 pg (26-32); Mean Platelet Volume 9.9 fl (6-9.5); Platelet Count 267 K/mm3 (150-450); Red Blood Count 3.11 M/mm3 (4.1-5.4); Red Cell Distribution Width 14.6 % (11.5-14.0); White Blood Count 5.1 K/mm3 (4.0-10.5)
[2017-05-09 06:02] LABS: ALBUMIN 2.6 g/dL (3.4-5.0); ANION GAP 14.7 MEQ/L (5-15); BILIRUBIN,TOTAL 0.2 mg/dL (0.2-1.0); Carbon Dioxide 26.3 mEq/L (21-32); Potassium 4.7 mEq/L (3.5-5.1); Total Protein 6.7 gm/dL (6.4-8.2)
[2017-05-09] MEDS: NovoLOG Insulin SQ PRN ×3 (07:50→19:37)
[2017-05-09] MEDS: Sodium Chloride 3 ML UD NEBULES IH PRN ×3 (08:49→18:45)
[2017-05-09] MEDS: Advair Hfa 115/21 Common canister IH SCH ×2 (08:52→18:56)
[2017-05-09 09:32] LABS: Total Cells Counted 100
[2017-05-09 09:33] LABS: Platelet Estimate NORMAL (NORMAL)
[2017-05-09] MEDS: Zestril 20 MG PO SCH (09:54)
[2017-05-09] MEDS: ULTRAM 50 MG PO SCH ×2 (09:54→22:11)
[2017-05-09] MEDS: MYSOLINE 50MG PO SCH ×2 (09:54→22:13)
[2017-05-09] MEDS: Klor Con 10 MEQ PO SCH ×2 (09:54→22:11)
[2017-05-09] MEDS: XARELTO 10 MG TABLET PO SCH (09:54)
[2017-05-09] MEDS: Protonix 40MG Tablet PO SCH ×2 (09:54→22:11)
[2017-05-09] MEDS: Wellbutrin SR 150 MG PO SCH (09:54)
[2017-05-09] MEDS: XANAX 1 MG PO SCH ×4 (09:55→22:11)
[2017-05-09] MEDS: Lasix 20 MG/2 ML IV SCH ×2 (09:55→17:09)
[2017-05-09] MEDS: Neurontin 100 MG PO SCH ×3 (09:55→22:11)
[2017-05-09] MEDS: CLARITIN 10 MG PO SCH (09:55)
[2017-05-09] MEDS: SENOKOT 8.6 MG PO SCH ×2 (09:55→22:12)
[2017-05-09] MEDS: ROCEPHIN 1 Gm-D5w 50 ml Bag** 1 G/50 ML IVPB IV SCH (09:56)
[2017-05-09] MEDS: Zithromax 500 MG/ 250 ML NaCl Premix 500 MG/250 ML IVPB IV SCH (09:56)
[2017-05-09] MEDS: Flonase NASAL NS SCH (09:59)
[2017-05-09] MEDS: Mucinex 600MG ER Tabs PO SCH ×2 (10:23→22:10)
[2017-05-09] MEDS: Requip 0.5 MG PO SCH (22:11)
[2017-05-09] MEDS: MAG-OX 400 PO SCH (22:12)
[2017-05-09] MEDS: Aricept 10 MG PO SCH (22:13)
[2017-05-09] MEDS: Lubrifresh P.M. 3.5 gm Ointment OP SCH (22:15)
[2017-05-10] MEDS: Xopenex 1.25 MG/0.5 ML UD NEBULE IH SCH ×4 (00:50→18:40)
[2017-05-10] MEDS: Sodium Chloride 3 ML UD NEBULES IH PRN ×4 (00:50→18:40)
[2017-05-10] MEDS: solu-MEDROL 125 MG IV SCH ×4 (04:24→22:47)
[2017-05-10 05:35] LABS: Mean Cell Volume 93.3 fl (78-100); Platelet Count 314 K/mm3 (150-450); Red Blood Count 3.14 M/mm3 (4.1-5.4); Red Cell Distribution Width 14.6 % (11.5-14.0); White Blood Count 4.4 K/mm3 (4.0-10.5)
[2017-05-10 05:43] LABS: Mean Corpuscular Hemoglobin 30.2 pg (26-32)
[2017-05-10 06:12] LABS: ALBUMIN 2.6 g/dL (3.4-5.0); BILIRUBIN,TOTAL 0.2 mg/dL (0.2-1.0); Carbon Dioxide 28.9 mEq/L (21-32); Potassium 4.8 mEq/L (3.5-5.1); Total Protein 6.4 gm/dL (6.4-8.2)
[2017-05-10] MEDS: Advair Hfa 115/21 Common canister IH SCH ×2 (07:07→20:24)
[2017-05-10] MEDS: Artificial Tears 15 ML OP SCH ×9 (07:31→22:43)
[2017-05-10] MEDS: NovoLOG Insulin SQ PRN ×2 (07:55→23:30)
--- NOTE | 2017-05-10 08:13 | PCM.NOTE ---
Date and Time: 05/10/17 0810 Subjective Assessment: patient continues to complain of cough, feels poorly. tolerating po. family continues to be very frustrated with senior care situation/oxygen equipment etc Objective Exam General Appearance: no apparent distress Respiratory Exam: crackles/rales Cardiovascular Exam: regular rate/rhythm, normal heart sounds Gastrointestinal/Abdomen Exam: soft, No tenderness, No mass Extremity Exam: normal inspection, normal range of motion OBJECTIVE DATA Vital Signs: Vital Signs - 24 hr Temp Pulse Resp BP Pulse Ox 05/10/17 07:00 98 H 18 97 05/10/17 04:00 97.8 F 104 H 20 146/67 98 05/10/17 00:50 70 20 99 05/10/17 00:00 97.6 F 104 H 20 142/67 99 05/09/17 20:00 98.2 F 99 H 18 137/65 98 05/09/17 18:44 111 H 21 96 05/09/17 16:10 98 F 78 20 157/79 96 05/09/17 13:00 90 24 94 L 05/09/17 12:17 97.9 F 90 20 139/69 96 Oxygen-Last 24 hours O2 Percentage 3 Liters = 32% Pain Assessment - Last Documented Pain Intensity 1 Pain Scale Used 0-10 Pain Scale Intake and Output: Intake & Output 05/07/17 05/08/17 05/09/17 05/10/17 11:59 11:59 11:59 11:59 Intake Total 360 1570 1470 720 Output Total 700 2650 3300 1950 [facility] -340 -1080 -1830 -1230 Weight 71.35 kg 71.35 kg Lab Results: Accuchecks Date 05/10/17 Date 05/09/17 Date 05/09/1705/09/17 Time 07:30 Time 20:00 Time 16:06 Time 11:53 Accucheck Value: 267 Accucheck Value: 350 Accucheck Value: 59 Accucheck Value: 256 Lab Results-Last 24 Hours 05/09/17 05/10/17 05/10/17 Range/Units 05:15 05:15 05:15 WBC 5.1 4.4 (4.0-10.5) K/mm3 RBC 3.11 L 3.14 L (4.1-5.4) M/mm3 Hgb 9.4 L 9.5 L (12.0-16.0) gm/dl Hct 29.2 L 29.3 L (35-47) % MCV 93.9 93.3 (78-100) fl MCH 30.2 30.2 (26-32) pg MCHC 32.2 32.4 (32-36) g/dl RDW 14.6 H 14.6 H (11.5-14.0) % Plt Count 267 314 (150-450) K/mm3 MPV 9.9 H 10.0 H (6-9.5) fl Segmented Neutrophils 90 H (36.0-66.0) % Lymphocytes (Manual) 7 L (24-44) % Monocytes (Manual) 3 (0.0-12.0) % Differential Comment NORMAL Platelet Estimate NORMAL (NORMAL) Sodium 129 L (136-145) mEq/L Potassium 4.8 (3.5-5.1) mEq/L Chloride 90 L (98-107) mEq/L Carbon Dioxide 28.9 (21-32) mEq/L Anion Gap 15.0 (5-15) MEQ/L BUN 29 H (9-20) mg/dL Creatinine 1.18 (0.55-1.30) mg/dl Estimated GFR 47 ML/MIN Glucose 279 H (70-110) MG/DL Calcium 8.8 (8.5-10.1) mg/dL Total Bilirubin 0.20 (0.2-1.0) mg/dL AST 12 L (15-37) U/L ALT 19 (12-78) U/L Alkaline Phosphatase 99 (46-116) U/L Serum Total Protein 6.4 (6.4-8.2) gm/dL Albumin 2.6 L (3.4-5.0) g/dL Radiology Exams: Radiology Procedures Category Date Time Status CHEST 1 VIEW (PORTABLE) Routine Exams 05/10/17 08:08 Ordered Multi-Disciplinary Progress Notes: Multi-Disciplinary Progress Notes 05/09/17 08:53 (created 05/09/17 13:50) Respiratory Note by Christiana Torrez The patient was offered her nebulizer treatment at 0735. Pt states she had just had one bite of her eggs and had inhaled a piece of scrambled egg. Pt was coughing and then coughed up the scrambled egg. Pt mildly short of breath after this episode, but stated she wanted to eat her breakfast. Told patient I would be back to give her a nebulizer treatment. The patient at this time was still coughing and informs me that she has a piece of her corn flakes caught in her throat. The paitent then coughed up the cereal. Treatment was given to patient at this time. Pt's nurse was informed of situation,. Initialized on 05/09/17 13:50 - END OF NOTE Assessment/Plan (1) CHF (congestive heart failure) Current Visit: Yes Status: Acute Assessment & Plan: appears euvolemic at this time but remains with rales in randy lung bases, will repeat chest xray. echo pending. Code(s): I50.9 - HEART FAILURE, UNSPECIFIED (2) Left lower lobe pneumonia Current Visit: Yes Status: Acute Assessment & Plan: repeat chest xray, currently on rocephin/zithromax Code(s): J18.1 - LOBAR PNEUMONIA, UNSPECIFIED ORGANISM (3) COPD exacerbation Current Visit: No Status: Acute Assessment & Plan: no significant wheezing on exam, currently on solumedrol 80mg IV q8hrs Code(s): J44.1 - CHRONIC OBSTRUCTIVE PULMONARY DISEASE W (ACUTE) EXACERBATION (4) Chronic hypoxemic respiratory failure Current Visit: No Status: Chronic (5) Diabetes Current Visit: No Status: Chronic Qualifiers: Code(s): E11.9 - TYPE 2 DIABETES MELLITUS WITHOUT COMPLICATIONS
--- NOTE | 2017-05-10 09:13 | XRAY ---
Indication: Follow-up pneumonia. CHF. Comparison: May 06, 2017. Portable chest demonstrates mild clearing of the previous bibasilar infiltrates/atelectasis/effusion which still persist. Stable cardiomegaly. No new cardiopulmonary abnormalities.
[2017-05-10] MEDS: Mucinex 600MG ER Tabs PO SCH ×2 (09:52→22:45)
[2017-05-10] MEDS: Zestril 20 MG PO SCH (09:53)
[2017-05-10] MEDS: Neurontin 100 MG PO SCH ×3 (09:53→22:47)
[2017-05-10] MEDS: Klor Con 10 MEQ PO SCH ×2 (09:54→22:44)
[2017-05-10] MEDS: SENOKOT 8.6 MG PO SCH ×2 (09:54→22:50)
[2017-05-10] MEDS: XANAX 1 MG PO SCH ×4 (09:54→22:47)
[2017-05-10] MEDS: MYSOLINE 50MG PO SCH ×2 (09:54→22:46)
[2017-05-10] MEDS: CLARITIN 10 MG PO SCH (09:55)
[2017-05-10] MEDS: Protonix 40MG Tablet PO SCH ×2 (09:55→23:27)
[2017-05-10] MEDS: XARELTO 10 MG TABLET PO SCH (09:55)
[2017-05-10] MEDS: Wellbutrin SR 150 MG PO SCH (09:55)
[2017-05-10] MEDS: Lasix 20 MG/2 ML IV SCH ×2 (09:55→17:44)
[2017-05-10] MEDS: ULTRAM 50 MG PO SCH ×2 (09:55→22:47)
[2017-05-10] MEDS: Flonase NASAL NS SCH (09:56)
[2017-05-10] MEDS: ROCEPHIN 1 Gm-D5w 50 ml Bag** 1 G/50 ML IVPB IV SCH (09:57)
[2017-05-10] MEDS: Zithromax 500 MG/ 250 ML NaCl Premix 500 MG/250 ML IVPB IV SCH (12:34)
--- NOTE | 2017-05-10 13:46 | ECHO ---
DATE: 05/07/17 A transthoracic echocardiograph examination with color Doppler study was done. INDICATION: Congestive heart failure. IMPRESSION: 1. NO DEFINITE REGIONAL WALL MOTION ABNORMALITY WITH ESTIMATED GLOBAL LEFT VENTRICULAR EJECTION FRACTION BETWEEN 50 AND 60%. 2. MILD MITRAL REGURGITATION. 3. TRACE TRICUSPID REGURGITATION WITH RIGHT VENTRICULAR SYSTOLIC PRESSURE OF 35 MM OF MERCURY. The left ventricle was partially visualized, but demonstrated adequate motion of all the segments with estimated global left ventricular ejection fraction around 50-60%. Left ventricular thickness is normal. The mitral valve was seen and this opens adequately. There is mild mitral regurgitation. The left atrium is in the upper limits of normal. The aortic valve appears to open adequately. The right-sided chambers are normal. There is trace tricuspid regurgitation with right ventricular systolic pressure of 35 mm Hg.
[2017-05-10] MEDS: Aricept 10 MG PO SCH (22:39)
[2017-05-10] MEDS: Lubrifresh P.M. 3.5 gm Ointment OP SCH (22:44)
[2017-05-10] MEDS: Requip 0.5 MG PO SCH (22:47)
[2017-05-10] MEDS: MAG-OX 400 PO SCH (22:48)
[2017-05-10] MEDS: Tessalon Perles 100 MG PO PRN (23:26)
[2017-05-11] MEDS: Sodium Chloride 3 ML UD NEBULES IH PRN ×4 (00:47→18:35)
[2017-05-11] MEDS: Xopenex 1.25 MG/0.5 ML UD NEBULE IH SCH ×4 (00:47→18:35)
[2017-05-11] MEDS: solu-MEDROL 125 MG IV SCH ×3 (04:10→22:34)
[2017-05-11 05:31] LABS: Mean Cell Volume 94.2 fl (78-100); Mean Platelet Volume 9.8 fl (6-9.5); Platelet Count 368 K/mm3 (150-450); Red Blood Count 3.26 M/mm3 (4.1-5.4); Red Cell Distribution Width 14.6 % (11.5-14.0); White Blood Count 5.6 K/mm3 (4.0-10.5)
[2017-05-11 05:51] LABS: ALBUMIN 2.8 g/dL (3.4-5.0); BILIRUBIN,TOTAL 0.3 mg/dL (0.2-1.0); Carbon Dioxide 32.5 mEq/L (21-32); Total Protein 6.6 gm/dL (6.4-8.2)
[2017-05-11] MEDS: Artificial Tears 15 ML OP SCH ×9 (06:22→22:31)
[2017-05-11] MEDS ORDERED: Sodium Chloride 3 ML UD NEBULES IH ONE ×2 (06:32→13:03)
[2017-05-11] MEDS: Advair Hfa 115/21 Common canister IH SCH ×2 (06:47→18:41)
[2017-05-11 07:22] LABS: Platelet Estimate NORMAL (NORMAL); Total Cells Counted 100
--- NOTE | 2017-05-11 09:28 | PCM.NOTE ---
Date and Time: 05/11/17924 Subjective Assessment: doing ok, had an episode of confusion last night. states her breathing is better at times but not at others. Objective Exam General Appearance: no apparent distress, alert Respiratory Exam: prolonged expirations, crackles/rales (minimal crackles, much more clear today and better air exchange) Cardiovascular Exam: regular rate/rhythm, normal heart sounds Gastrointestinal/Abdomen Exam: soft, No tenderness, No mass Extremity Exam: normal inspection, normal range of motion OBJECTIVE DATA Vital Signs: Vital Signs - 24 hr Temp Pulse Resp BP Pulse Ox 05/11/17 08:00 20 05/11/17 07:14 97.9 F 96 H 20 167/73 96 05/11/17 04:00 97.7 F 89 18 143/60 93 L 05/11/17 00:47 87 19 97 05/11/17 00:00 98.0 F 90 18 140/59 96 05/10/17 20:00 97.9 F 84 18 126/61 95 05/10/17 18:40 84 18 95 05/10/17 16:00 20 05/10/17 15:46 97.8 F 105 H 20 140/59 96 05/10/17 13:00 98 H 20 97 05/10/17 12:00 97.9 F 104 H 22 132/64 98 Oxygen-Last 24 hours O2 Percentage 2 Liters = 28% O2 Percentage 4 Liters = 36% O2 Percentage 4 Liters = 36% O2 Percentage 4 Liters = 36% O2 Percentage 3 Liters = 32% O2 Percentage 4 Liters = 36% Pain Assessment - Last Documented Pain Intensity 0 Pain Scale Used [facility] Intake and Output: Intake & Output 05/08/17 05/09/17 05/10/17 05/11/17 11:59 11:59 11:59 11:59 Intake Total 1570 1470 720 380 Output Total 2650 3300 1950 1500 Balance -5779 -1830 -1230 -1120 Weight 71.35 kg 71.35 kg 69.354 kg 69.309 kg Lab Results: Accuchecks Date 05/11/17 Date 05/10/17 Date 05/10/17 Time 07:30 Time 20:30 Time 17:00 Accucheck Value: 224 Accucheck Value: 264 Accucheck Value: 189 Accucheck Value: 339 Lab Results-Last 24 Hours 05/11/17 05/11/17 Range/Units 05:15 05:15 WBC 5.6 (4.0-10.5) K/mm3 RBC 3.26 L (4.1-5.4) M/mm3 Hgb 9.8 L (12.0-16.0) gm/dl Hct 30.7 L (35-47) % MCV 94.2 (78-100) fl MCH 30.0 (26-32) pg MCHC 31.9 L (32-36) g/dl RDW 14.6 H (11.5-14.0) % Plt Count 368 (150-450) K/mm3 MPV 9.8 H (6-9.5) fl Segmented Neutrophils 90 H (36.0-66.0) % Lymphocytes (Manual) 9 L (24-44) % Monocytes (Manual) 1 (0.0-12.0) % Differential Comment NORMAL Platelet Estimate NORMAL (NORMAL) Sodium 131 L (136-145) mEq/L Potassium 5.0 (3.5-5.1) mEq/L Chloride 93 L (98-107) mEq/L Carbon Dioxide 32.5 H (21-32) mEq/L Anion Gap 10.0 (5-15) MEQ/L BUN 41 H (9-20) mg/dL Creatinine 1.33 H (0.55-1.30) mg/dl Estimated GFR 41 ML/MIN Glucose 235 H (70-110) MG/DL Calcium 9.1 (8.5-10.1) mg/dL Total Bilirubin 0.30 (0.2-1.0) mg/dL AST 5 L (15-37) U/L ALT 17 (12-78) U/L Alkaline Phosphatase 105 (46-116) U/L Serum Total Protein 6.6 (6.4-8.2) gm/dL Albumin 2.8 L (3.4-5.0) g/dL Radiology Exams: Radiology Procedures Category Date Time Status CHEST 1 VIEW (PORTABLE) Routine Exams 05/10/17 08:08 Completed Assessment/Plan (1) CHF (congestive heart failure) Current Visit: Yes Status: Acute Assessment & Plan: continues to improve, sodium level improving secondary to correction of volume overload Code(s): I50.9 - HEART FAILURE, UNSPECIFIED (2) Left lower lobe pneumonia Current Visit: Yes Status: Acute Assessment & Plan: on rocephin and zithromax Code(s): J18.1 - LOBAR PNEUMONIA, UNSPECIFIED ORGANISM (3) COPD exacerbation Current Visit: No Status: Acute Assessment & Plan: patient has advanced copd, Dr Nobles consulted at family's request. don't have much else to offer at this time due to advanced copd with chronic respiratory failure. family very unhappy with correction and frustrations with portable oxygen equipment, they are considering purchasing their own portable concentrator as her insurance would not cover in [facility] Code(s): J44.1 - CHRONIC OBSTRUCTIVE PULMONARY DISEASE W (ACUTE) EXACERBATION (4) Chronic hypoxemic respiratory failure Current Visit: No Status: Chronic (5) Diabetes Current Visit: No Status: Chronic Qualifiers: Code(s): E11.9 - TYPE 2 DIABETES MELLITUS WITHOUT COMPLICATIONS
[2017-05-11] MEDS: Mucinex 600MG ER Tabs PO SCH ×2 (11:12→22:28)
[2017-05-11] MEDS: Wellbutrin SR 150 MG PO SCH (11:12)
[2017-05-11] MEDS: MYSOLINE 50MG PO SCH ×2 (11:13→22:28)
[2017-05-11] MEDS: Lasix 20 MG/2 ML IV SCH ×2 (11:13→17:05)
[2017-05-11] MEDS: XANAX 1 MG PO SCH ×4 (11:14→22:29)
[2017-05-11] MEDS: Neurontin 100 MG PO SCH ×3 (11:14→22:28)
[2017-05-11] MEDS: SENOKOT 8.6 MG PO SCH ×2 (11:14→22:33)
[2017-05-11] MEDS: CLARITIN 10 MG PO SCH (11:14)
[2017-05-11] MEDS: XARELTO 10 MG TABLET PO SCH (11:14)
[2017-05-11] MEDS: Klor Con 10 MEQ PO SCH ×2 (11:15→22:30)
[2017-05-11] MEDS: Zestril 20 MG PO SCH (11:15)
[2017-05-11] MEDS: Protonix 40MG Tablet PO SCH ×2 (11:15→22:29)
[2017-05-11] MEDS: ROCEPHIN 1 Gm-D5w 50 ml Bag** 1 G/50 ML IVPB IV SCH (11:16)
[2017-05-11] MEDS: Flonase NASAL NS SCH (11:16)
[2017-05-11] MEDS: ULTRAM 50 MG PO SCH ×2 (11:17→22:29)
[2017-05-11] MEDS: Zithromax 500 MG/ 250 ML NaCl Premix 500 MG/250 ML IVPB IV SCH (11:58)
[2017-05-11] MEDS: NovoLOG Insulin SQ PRN ×2 (12:13→22:26)
[2017-05-11] MEDS: Aricept 10 MG PO SCH (22:28)
[2017-05-11] MEDS: Requip 0.5 MG PO SCH (22:28)
[2017-05-11] MEDS: MAG-OX 400 PO SCH (22:30)
[2017-05-11] MEDS: Lubrifresh P.M. 3.5 gm Ointment OP SCH (22:32)
[2017-05-12] MEDS: Xopenex 1.25 MG/0.5 ML UD NEBULE IH SCH ×3 (01:28→13:05)
[2017-05-12] MEDS: Artificial Tears 15 ML OP SCH ×6 (06:11→14:09)
[2017-05-12] MEDS: solu-MEDROL 125 MG IV SCH ×2 (06:11→14:05)
[2017-05-12] MEDS: Sodium Chloride 3 ML UD NEBULES IH PRN ×2 (06:54→13:05)
[2017-05-12] MEDS: ULTRAM 50 MG PO SCH (06:55)
--- NOTE | 2017-05-12 08:20 | PCM.DS ---
Discharge Summary Date of Admission: 05/07/17 08:30 Admitting Physician: DELTA MIRANDA Consults: Consults on Case 05/10/17 08:09 Consult Pulmonology ROUTINE Primary Care Provider: DELTA MIRANDA Allergies Allergies fluoxetine HCl [From Prozac] Allergy (Verified 04/13/17 10:51) Sulfa (Sulfonamide Antibiotics) Allergy (Verified 04/13/17 10:51) Hospital Summary - Hospital Course Hospital Course: patient was admitted with altered mental status, fatigue, cough and shortness of breath. she was recently admitted with pneumonia so of course her chest xray still showed pneumonia but also bibasilar effusions, she has been diuresed and done quite well, was continued on rocephin and zithromax. - Vitals & Intake/Output Vital Signs: Vital Signs Temperature 98.5 F 05/12/17 07:35 Pulse Rate 83 05/12/17 07:35 Respiratory Rate 17 05/12/17 07:35 Blood Pressure 132/66 05/12/17 07:35 O2 Sat by Pulse Oximetry 96 05/12/17 07:35 Oxygen-Last Documented O2 Percentage 4 Liters = 36% Intake & Output: Intake & Output 05/09/17 05/10/17 05/11/17 05/12/17 11:59 11:59 11:59 11:59 Intake Total 1470 720 620 240 Output Total 3300 1950 1800 1300 Balance -1830 -1230 -1180 -1060 Weight 71.35 kg 69.354 kg 69.309 kg 68.311 kg - Lab Result Diagrams: 05/11/17 05:15 05/11/17 05:15 Lab Results-Last 24 Hrs: Accuchecks Date 05/11/17 Date 05/11/17 Date 05/11/17 Time 21:00 Time 16:20 Time 11:30 Accucheck Value: 332 Accucheck Value: 75 Accucheck Value: 340 Micro Results-Entire Visit: Accuchecks Date 05/11/17 Date 05/11/17 Date 05/11/17 Time 21:00 Time 16:20 Time 11:30 Accucheck Value: 332 Accucheck Value: 75 Accucheck Value: 340 - Radiology Exams Ordered Rad Exams-Entire Visit: Radiology Procedures Category Date Time Status CHEST 1 VIEW (PORTABLE) Routine Exams 05/10/17 08:08 Completed CHEST 1 VIEW (PORTABLE) Routine Exams 05/12/17 08:14 Ordered - Procedures and Test Procedures and Tests throughout Hospitalization: Therapy Orders & Screens 05/07/17 07:00 Respiratory Nebulizer Q6H Comment: XOPENEX Q6H Diagnosis: UTI, CHF Discharge Exam General Appearance: no apparent distress, alert Respiratory Exam: lungs clear, diminished breath sounds, prolonged expirations Cardiovascular Exam: regular rate/rhythm, normal heart sounds Gastrointestinal/Abdomen Exam: soft, No tenderness, No mass Extremity Exam: normal inspection, normal range of motion Final Diagnosis/Problem List - Final Discharge Diagnosis/Problem (1) CHF (congestive heart failure) Current Visit: Yes Status: Acute Assessment & Plan: doing well at this time, appears euvolemic (2) Left lower lobe pneumonia Current Visit: Yes Status: Acute Assessment & Plan: clinically improved, plan to return to [place] today, pulm consult pending per family request but I feel as though she is stable at this time and safe for discharge. will continue her on po levaquin and po prednisone on return (3) COPD exacerbation Current Visit: No Status: Acute (4) Chronic hypoxemic respiratory failure Current Visit: No Status: Chronic (5) Diabetes Current Visit: No Status: Chronic - Discharge Disposition: Home, Self-Care Condition: Stable Prescriptions: New Prednisone 20 mg [Deltasone 20 mg] 20 mg PO DAILY #7 tablet Levofloxacin [Levaquin] 500 mg PO DAILY #7 tablet Levalbuterol HCl 1.25 MG/0.5M* [Xopenex 1.25 MG/0.5 ML UD NEBULE] 1.25 mg IH Q6HRT #0 neb Continue Rivaroxaban [Xarelto] 10 mg PO DAILY Primidone 50 MG [Mysoline 50Mg] 1 tab PO BID Bupropion HCl [Wellbutrin Sr] 150 mg PO DAILY Lisinopril 10 mg [Zestril 10 MG] 20 mg PO DAILY Donepezil HCl 10 mg [Aricept 10 MG] 10 mg PO HS Tramadol HCl 50 mg [Ultram 50 mg] 50 mg PO BID Carboxymethylcellulos/Glycerin [Refresh Optive Eye Drops] 2 drp OP Q2H Sennosides [Senna Laxative] 8.6 mg PO BID Gabapentin [Neurontin] 100 mg PO TID Benzonatate [Tessalon Perle] 200 mg PO TID Ropinirole HCl 0.5 mg [Requip 0.5 MG] 1 mg PO HS Omeprazole 20 MG [Prilosec 20 mg] 20 mg PO BID Olopatadine HCl [Pataday] 2.5 ml OP DAILY Fluticasone Propionate [Flonase NASAL] 16 gm NS DAILY Mineral Oil/Petrolatum,White [Refresh P.m. Ointment] 3.5 gm OP HS Loratadine 10 mg [Claritin 10 mg] 1 tab PO DAILY Magnesium Oxide 400 mg [Mag-Ox 400] 200 mg PO HS Dextran 70/Hypromellose [Artificial Tears Eye Drops] 15 ml OP HS Esomeprazole Magnesium [Nexium] 20 mg PO DAILY Ropinirole HCl 0.5 mg [Requip 0.5 MG] 1 mg PO HS Nystatin Powder 15 gm [Nystop Powder 15 gm] 15 gm TP Q8HPRN PRN PRN Reason: gualded areas under breasts Diclofenac Sodium Gel [Voltaren GEL] 100 gm TP DAILY PRN PRN Reason: Pain Docusate Sodium 100 mg [Colace 100 MG] 100 mg PO DAILY PRN PRN Reason: stool softener Sodium Chloride [Saline Nasal [place]] 30 ml NS DAILY PRN PRN Reason: nasal dryness Alprazolam 1 mg [Xanax 1 mg] 1 mg PO QID Instructions: Heart Failure Follow up with: DELTA MIRANDA MD [Primary Care Provider] -
--- NOTE | 2017-05-12 08:50 | XRAY ---
Indication: Pneumonia. CHF. Comparison: May 10, 2017. Portable chest unchanged again demonstrating minimal bibasilar infiltrates/atelectasis/effusion and cardiomegaly. No new findings.
[2017-05-12] MEDS: Wellbutrin SR 150 MG PO SCH (09:36)
[2017-05-12] MEDS: Mucinex 600MG ER Tabs PO SCH (09:36)
[2017-05-12] MEDS: MYSOLINE 50MG PO SCH (09:36)
[2017-05-12] MEDS: Klor Con 10 MEQ PO SCH (09:37)
[2017-05-12] MEDS: CLARITIN 10 MG PO SCH (09:37)
[2017-05-12] MEDS: Zestril 20 MG PO SCH (09:37)
[2017-05-12] MEDS: XANAX 1 MG PO SCH ×2 (09:37→14:03)
[2017-05-12] MEDS: Protonix 40MG Tablet PO SCH (09:37)
[2017-05-12] MEDS: XARELTO 10 MG TABLET PO SCH (09:37)
[2017-05-12] MEDS: Neurontin 100 MG PO SCH ×2 (09:37→14:44)
[2017-05-12] MEDS: ROCEPHIN 1 Gm-D5w 50 ml Bag** 1 G/50 ML IVPB IV SCH (09:38)
[2017-05-12] MEDS: Lasix 20 MG/2 ML IV SCH (09:38)
[2017-05-12] MEDS: Flonase NASAL NS SCH (09:39)
[2017-05-12] MEDS: SENOKOT 8.6 MG PO SCH (09:41)
[2017-05-12] MEDS: Zithromax 500 MG/ 250 ML NaCl Premix 500 MG/250 ML IVPB IV SCH (10:42)
[2017-05-12 11:46] VITALS: BP 118/85
[2017-05-12] MEDS: NovoLOG Insulin SQ PRN (12:07)
[2017-05-12 13:12] VITALS: PULSE 82; O2SAT 95
--- NOTE | 2017-05-12 14:21 | CONS ---
CONSULT DATE: 05/12/2017 REASON FOR CONSULTATION: Evaluation of shortness of breath. HISTORY: Miss Hastings is an 81 year-old woman with history of pulmonary problems, known to me from office visits last seen about six months ago, who presented to [facility] with complaints of cough, shortness of breath, wheezing that got progressively worse. The patient is noted to have volume overload with congestive heart failure and chronic obstructive pulmonary disease exacerbation. She has been treated with Rocephin, Zithromax and IV steroids along with bronchodilator therapy. She does report mild clinical improvement. However she continues to have significant cough productive of extremely thick expectoration. The patient has trouble excretions up. PAST MEDICAL HISTORY: Positive for chronic obstructive pulmonary disease, history of chronic respiratory failure on oxygen therapy usually at 2 liters which has currently been up to 4. History of chronic pulmonary embolism, gastroesophageal reflux, hypertension and dementia. PAST SURGICAL HISTORY: No recent surgeries. PERSONAL AND SOCIAL HISTORY: She is a resident of a alf. MEDICATIONS: Home and current medications are reviewed. ALLERGIES: ALLERGIES NOTED. PHYSICAL EXAMINATION: This is an elderly woman who appears uncomfortable due to ongoing cough. Vital signs are noted. HEENT: Normocephalic. Oral exam is unremarkable. CVS: First and second heart sounds are normal, regular, rhythmic. RESPIRATORY: Shows diminished breath sounds, bilaterally fairly diffuse rhonchi and crackles are heard. Kyphosis is noted. ABDOMEN: Soft. No edema is noted. LABORATORY DATA AND TESTS: Blood cultures are negative. White blood cell count 5.6, hemoglobin 9.8, hematocrit 30.7, PLT 360,000. Sodium 131, potassium 5.0, chloride 93, bicarb 32, glucose 235, BUN 41, creatinine 1.3. Chest x-ray was reviewed. ASSESSMENT: This is an 81 year old woman admitted with: 1) Chronic obstructive pulmonary disease with exacerbation. 2) Recurrent chronic bronchitis. 3) Congestive heart failure, clinically compensated. 4) History of chronic pulmonary embolism. 5) General debilitation. 6) Retained pulmonary secretions. RECOMMENDATIONS: 1) I agree with the current treatment. 2) The patient continues to have significant cough with extremely thick expectoration which she has been having difficulty in expectorating. I discussed with the patient and family the role of bronchoscopy. I do believe the patient would benefit from this and they are in agreement. 3) Otherwise current treatment. I will discuss with Dr. Killian. If agreeable will transfer to [facility] under my care for bronchoscopy and further care. Thank you for allowing me to participate in the care of Nicky Hastings.
== END 2017-05-12 15:10 | disposition short-term general hospital (02) | DRG 291 ==
LOC: ED 13:37 → MED SURG 17:05 → OBSVTOIN 05-07 08:30
PROVIDERS: ADMIT Family Medicine; ATTEND Family Medicine
DX: I50.9 Heart failure, unspecified (principal); J18.1 Lobar pneumonia, unspecified organism; J44.1 Chronic obstructive pulmonary disease with (acute) exacerbation; J96.11 Chronic respiratory failure with hypoxia; E11.9 Type 2 diabetes mellitus without complications; I10 Essential (primary) hypertension; F03.90 Unspecified dementia, unspecified severity, without behavioral disturbance, psychotic disturbance, mood disturbance, and anxiety; J45.909 Unspecified asthma, uncomplicated; Z86.711 Personal history of pulmonary embolism; K21.9 Gastro-esophageal reflux disease without esophagitis; F41.8 Other specified anxiety disorders; D64.9 Anemia, unspecified; Z79.01 Long term (current) use of anticoagulants; Z99.81 Dependence on supplemental oxygen; R53.81 Other malaise; R41.82 Altered mental status, unspecified
CPT/HCPCS: 36000; 36415; 70450; 71010; 80048; 80053; 81000; 82962; 83605; 83880; 84484; 85025; 85027; 85379; 87040; 87086; 93005; 93041; 93306; 94640; 94760; 96365; 99285; G0378; J0456; J0696; J1940; J2930; P9612; A9270-GY